=== PATIENT | male | born 1940 | race Two or more races ===

== ENCOUNTER 2017-12-16 12:08 | Inpatient (IN) | payer MEDICARE, MEDICAID ==
--- NOTE | 2017-12-16 13:40 | C.PDOC ---
History Of Present Illness 77 y/o male with a past medical history of hypertension, hypercholesterolemia, and diabetes, who presents to the ED for new-onset rapid A fib A flutter with RVR. Patient went to the clinic today for routine visit and was found to have arrhythmia there, after which the ambulance was called. Patient has no associated symptoms. He denies any chest pain, palpitations, SOB, leg swelling, dizziness, visual changes, headaches, numbness, or weakness. Drug allergies reviewed: Penicillin Benadryl Medications reviewed: Vitamin C Centrum Silver Vitamin D Fish Oil Aspirin 81mg Simvastatin 10 mg Janumet Nateglinide 120 mg NovoLog Flexpen Levemir Seroquel 50 mg Depakote 250 mg Invega Sustenna Lovaza prn Time Seen by Provider: 12/16/17 13:17 Chief Complaint (Nursing): Medical Clearance History Per: Patient History/Exam Limitations: no limitations Onset/Duration Of Symptoms: Unknown Past Medical History Reviewed: Historical Data, Nursing Documentation, Vital Signs Vital Signs: Last Vital Signs Temp 98.3 F 12/16/17 20:00 Pulse 73 12/16/17 20:49 Resp 18 12/16/17 20:49 BP 107/64 12/16/17 20:49 Pulse Ox 99 12/16/17 21:46 - Medical History PMH: Anemia, Depression, Diabetes, HTN, Hypercholesterolemia, Hyperlipidemia, Malignancy (basal cell carcinoma s/p multiple excisions), Schizophrenia Family History: States: Unknown Family Hx - Social History Hx Tobacco Use: No Hx Alcohol Use: No Hx Substance Use: No - Immunization History Hx Tetanus Toxoid Vaccination: No Hx Influenza Vaccination: No Hx Pneumococcal Vaccination: No Review Of Systems Except As Marked, All Systems Reviewed And Found Negative. Constitutional: Negative for: Fever, Chills, Sweats Eyes: Negative for: Vision Change ENT: Negative for: Ear Pain, Ear Discharge, Nose Pain Cardiovascular: Negative for: Chest Pain, Palpitations, Orthopnea, Paroxysmal Noc. Dyspnea, Edema, Light Headedness Respiratory: Negative for: Shortness of Breath, SOB with Excertion, Pleuritic Pain, Sputum Gastrointestinal: Negative for: Nausea, Vomiting Genitourinary: Negative for: Dysuria, Frequency Musculoskeletal: Negative for: Neck Pain, Shoulder Pain, Arm Pain, Leg Pain, Other (Extremity swelling) Skin: Negative for: Rash Neurological: Negative for: Weakness, Numbness, Headache, Dizziness Psych: Negative for: Anxiety, Depression Physical Exam - Physical Exam Appears: Non-toxic, No Acute Distress Skin: Normal Color, Warm, Dry Head: Atraumatic, Normacephalic Eye(s): bilateral: Normal Inspection, PERRL, EOMI Ear(s): Bilateral: Normal Nose: Normal Oral Mucosa: Moist Tongue: Normal Appearing Lips: Normal Appearing Teeth: Normal Dentition Gingiva: Normal Appearing Throat: Normal Neck: Normal ROM, Supple Lymphatic: Normal Exam Chest: Symmetrical Cardiovascular: Rhythm Irregular (Irregularly Irregular) Respiratory: Normal Breath Sounds, No Accessory Muscle Use, No Rales, No Rhonchi , No Wheezing, Other (No acute respiratory distress) Gastrointestinal/Abdominal: Normal Exam, Soft, No Tenderness, No Distention Back: Normal Inspection, No CVA Tenderness, No Vertebral Tenderness Extremity: Bilateral: Atraumatic, No Pedal Edema, Normal Color And Temperature, Normal ROM Pulses: Left Dorsalis Pedis: Normal, Right Dorsalis Pedis: Normal Neurological/Psych: Oriented x3, Normal Speech Gait: Steady ED Course And Treatment - Laboratory Results Result Diagrams: 12/16/17 14:04 12/16/17 14:04 Interpretation Of ECG: EKG: A flutter with variable block, in the 130s. QRS duration is 72 ms. QT/QTc is 328/476 ms. P-R-T axes are 76, 73 O2 Sat by Pulse Oximetry: 99 (RA) Pulse Ox Interpretation: Normal Critical Care Time - Critical Care Note Total Time (in mins): 45 Documented critical care: time excludes all time spent performing seperately billable procedures. Medical Decision Making Medical Decision Making: Time: 13:58 Initial Plan: * EKG * Pro-BNP * CMP * Thyroid panel * CBC * PTT * Prothrombin time * CXR * Accucheck * Aspirin 81 mg PO * Metoprolol 5 mg IV * Reevaluation 14:42 On reevaluation patient's HR increased to 145 bpm, will give 5 mg metoprolol followed by PO dose 16:48 0.5 mg digoxin IVP administered 16:49 Case discussed w/ Dr. Tovar, contract technical writer on-call. Patient will be admitted for rapid A fib with RvR. Disposition Discussed With Dr.: Acosta Tovar Doctor Will See Patient In The: ED Counseled Patient/Family Regarding: Diagnosis - Disposition Disposition: HOSPITALIZED Disposition Time: 21:46 Condition: FAIR - Clinical Impression Clinical Impression: Atrial fibrillation with rapid ventricular response - Scribe Statement The provider has reviewed the documentation as recorded by the Scribe (Morenita Solo) Provider Attestation: All medical record entries made by the Scribe were at my direction and personally dictated by me. I have reviewed the chart and agree that the record accurately reflects my personal performance of the history, physical exam, medical decision making, and the department course for this patient. I have also personally directed, reviewed, and agree with the discharge instructions and disposition. Decision To Admit - Pt Status Changed To: Hospital Disposition Of: Inpatient - Admit Certification Admit to Inpatient:: After my assessment, the patient will require hospitalization for at least two midnights. This is because of the severity of symptoms shown, intensity of services needed, and/or the medical risk in this patient being treated as an outpatient. - InPatient: Physician Admission Certification: I certify that this patient requires 2 or more midnights of care for the following reason:: rapid A fib with RvR, diabetes mellitus, hypertension - . Bed Request Type: ICU Patient Diagnosis: Atrial fibrillation with rapid ventricular response
[2017-12-16] MEDS ORDERED: Metoprolol 1 mg/ml Inj IVP ONE ×8 (13:57→17:44)
[2017-12-16 14:13] LABS: BASO # 0.1 K/uL (0.0-0.2); BASO % 0.9 % (0.0-2.0); EOS # 0.2 K/uL (0.0-0.7); EOS % 2.4 % (0.0-4.0); HEMOGLOBIN 13.1 g/dL (12.0-18.0); LYMPH # 3.2 K/uL (1.0-4.3); LYMPH % 35.2 % (20.0-40.0); MEAN CELL VOLUME 96.3 fL (80.0-94.0); MEAN CORPUSCULAR HGB CONC 34.3 g/dL (33.0-37.0); MEAN PLATELET VOLUME 8.7 fL (7.2-11.7); MONO # 0.4 K/uL (0.0-0.8); MONO % 4.8 % (0.0-10.0); NEUT # 5.1 K/uL (1.8-7.0); NEUT % 56.7 % (50.0-75.0); NRBC % 0.1 % (0.0-2.0); RBC 3.97 Mil/uL (4.40-5.90); RED CELL DISTRIBUTION WIDTH 14.2 % (11.5-14.5); WHITE BLOOD COUNT 9.1 K/uL (4.8-10.8)
--- NOTE | 2017-12-16 14:15 | RAD ---
PROCEDURE: CHEST RADIOGRAPH, 1 VIEW HISTORY: Palpations COMPARISON: None available. FINDINGS: LUNGS: The lungs are well inflated and clear. PLEURA: No pneumothorax or pleural fluid seen. CARDIOVASCULAR: Normal. OSSEOUS STRUCTURES: No significant abnormalities. VISUALIZED UPPER ABDOMEN: Normal. OTHER FINDINGS: None. IMPRESSION: No active pulmonary disease.
[2017-12-16 14:28] LABS: INR 1.1; PROTHROMBIN TIME 11.9 SECONDS (9.7-12.2)
[2017-12-16 14:39] LABS: ALB/GLOB RATIO 1.5 (1.0-2.1); ALBUMIN 4.3 g/dL (3.5-5.0); ALT/SGPT 27 U/L (21-72); AST/SGOT 23 U/L (17-59); BLOOD UREA NITROGEN 22 mg/dL (9-20); CALCIUM 9.6 mg/dl (8.6-10.4); GFR AFRICAN-AMERICAN > 60; GFR NON-AFRICAN AMERICAN > 60
[2017-12-16 14:51] LABS: B-TYPE NATRIURETIC PEPTIDE 444 pg/mL (0-900)
[2017-12-16 14:55] LABS: T3 UPTAKE 35.5 % (23.0-41.0); T4 7.67 ug/dL (5.5-11.0)
[2017-12-16] MEDS ORDERED: Esmolol 2,500 MG in Dextrose 5% In Water 240 ML IV SCH (16:00)
[2017-12-16] MEDS ORDERED: Labetalol 300 MG in Dextrose 5% In Water 240 ML IV SCH (16:30)
[2017-12-16] MEDS ORDERED: Labetalol 300 MG in Sodium Chloride 0.9% 240 ML IV SCH (16:45)
[2017-12-16] MEDS ORDERED: Digoxin 500 mcg/2ml (0.5 mg/2ml) Inj IVP ONE (16:48)
[2017-12-16] MEDS ORDERED: Digoxin 500 mcg/2ml (0.5 mg/2ml) Inj ONE (17:08)
--- NOTE | 2017-12-16 19:25 | CP.PCM.CON ---
History of Present Illness - History of Present Illness History of Present Illness: I was asked to evaluate patient by Dr Barlow. Patient is a 77 year old male with PMH HTn who presents with tachycardia. he went for a routine visit with is primary doctor and was found to be tachycardic. The patient was found to be in atrial flutter. The patient presents to ICU. He currently denies chest pain or dyspnea. Review of Systems - Constitutional Constitutional: absent: As Per HPI, Anorexia, Chills, Daytime Sleepiness, Excessive Sweating, Fatigue, Fever, Frequent Falls, Headache, Increased Appetite , Lethargy, Malaise, Night Sweats, Snoring, Sleep Apnea, Weight Gain, Weight Loss, Weakness, Other - EENT Eyes: absent: As Per HPI, Blind Spots, Blurred Vision, Change in Vision, Decreased Night Vision, Diplopia, Discharge, Dry Eye, Exophthalmos, Floaters, Irritation, Itchy Eyes, Loss of Peripheral Vision, Pain, Photophobia, Requires Corrective Lenses, Sees Flashes, Spots in Vision, Tunnel Vision, Other Visual Disturbances, Loss of Vision, Other Ears: absent: As Per HPI, Decreased Hearing, Ear Discharge, Ear Pain, Tinnitus, Abnormal Hearing, Disequilibrium, Dizziness, Other Nose/Mouth/Throat: absent: As Per HPI, Epistaxis, Nasal Congestion, Nasal Discharge, Nasal Obstruction, Nasal Trauma, Nose Pain, Post Nasal Drip, Sinus Pain, Sinus Pressure, Bleeding Gums, Change in Voice, Dental Pain, Dry Mouth, Dysphagia, Halitosis, Hoarsness, Lip Swelling, Mouth Lesions, Mouth Pain, Odynophagia, Sore Throat, Throat Swelling, Tongue Swelling, Facial Pain, Neck Pain, Neck Mass, Other - Cardiovascular Cardiovascular: Rapid Heart Rate - Respiratory Respiratory: absent: As Per HPI, Cough, Dyspnea, Hemoptysis, Dyspnea on Exertion , Wheezing, Snoring, Stridor, Pain on Inspiration, Chest Congestion, Excessive Mucous Production, Change in Mucous Color, Pain with Coughing, Other - Gastrointestinal Gastrointestinal: absent: As Per HPI, Abdominal Pain, Belching, Bloating, Change in Bowel Habits, Change in Stool Character, Coffee Ground Emesis, Constipation, Cramping, Diarrhea, Dyspepsia, Dysphagia, Early Satiety, Excessive Flatus, Fecal Incontinence, Heartburn, Hematemesis, Hematochezia, Loose Stools, Melena, Nausea, Odynophagia, Temesmus, Vomiting, Other - Genitourinary Genitourinary: absent: As Per HPI, Change in Urinary Stream, Difficulty Urinating, Dysuria, Flank Pain, Hematuria, Pyuria, Nocturia, Urinary Incontinence, Urinary Frequency, Urinary Hesitance, Urinary Urgency, Voiding Freq/Small Amts, Freq UTI, Hx Renal/Bladder Calculi, Hx /Renal Surgery, Bladder Distension, Other - Musculoskeletal Musculoskeletal: absent: As Per HPI, Abnormal Gait, Arthralgias, Atrophy, Back Pain, Deformity, Joint Swelling, Limited Range of Motion, Loss of Height, Muscle Cramps, Muscle Weakness, Myalgias, Neck Pain, Numbness, Radiating Pain into Limb, Stiffness, Tingling, Other - Integumentary Integumentary: absent: As Per HPI, Acne, Alopecia, Bleeding Lesions, Change in Hair, Change in Nails, Change in Pigmentation, Changing Lesions, Dry Skin, Erythema, Furuncle, Hirsutism, Lesions, New Lesions, Non-Healing Lesions, Photosensitivity, Pruritus, Rash, Skin Pain, Skin Ulcer, Sores, Striae, Swelling , Unusual Bruising, Wounds, Jaundice, Other - Neurological Neurological: absent: As Per HPI, Abnormal Gait, Abnormal Hearing, Abnormal Movements, Abnormal Speech, Behavioral Changes, Burning Sensations, Confusion, Convulsions, Disequilibrium, Dizziness, Numbness, Focal Weakness, Frequent Falls , Headaches, Lack of Coordination, Loss of Vision, Memory Loss, Paresthesias, Radicular Pain, Restless Legs, Sensory Deficit, Syncope, Tingling, Tremor, Vertigo, Weakness, Other Visual Disturbances, Other - Psychiatric Psychiatric: absent: As Per HPI, Abnormal Sleep Pattern, Anhedonia, Anxiety, Auditory Hallucinations, Behavioral Changes, Change in Appetite, Change in Libido, Confusion, Depression, Difficulty Concentrating, Hallucinations, Homicidal Ideation, Hopelessness, Irritability, Memory Loss, Mood Swings, Panic Attacks, Paranoia, Suicidal Ideation, Visual Hallucinations, Tactile Hallucinations, Other - Endocrine Endocrine: absent: As Per HPI, Change in Body Appearance, Change in Libido, Cold Intolorance, Deepening of Voice, Excessive Sweating, Fatigue, Flushing, Heat Intolorance, Increase in Ring/Shoe/Hat Size, Palpitations, Polydipsia, Polyphagia, Polyuria, Other - Hematologic/Lymphatic Hematologic: absent: As Per HPI, Easy Bleeding, Easy Bruising, Lymphadenopathy, Other Past Patient History - Past Social History Smoking Status: Former Smoker - CARDIAC Hx Hypercholesterolemia: Yes Hx Hypertension: Yes - ENDOCRINE/METABOLIC Hx Endocrine Disorders: Yes Hx Diabetes Mellitus Type 2: Yes - HEMATOLOGICAL/ONCOLOGICAL Hx Anemia: Yes - INTEGUMENTARY Hx Dermatological Problems: Yes Hx Squamous Cell: Yes - PSYCHIATRIC Hx Depression: Yes Hx Schizophrenia: Yes Hx Substance Use: No - SURGICAL HISTORY Hx Surgeries: No Meds Allergies/Adverse Reactions: Allergies Allergy/AdvReac Type Severity Reaction Status Date / Time diphenhydramine HCl Allergy DIZZINESS Verified 02/25/16 13:07 [From Benadryl] Penicillins Allergy RASH Verified 02/25/16 13:07 - Medications Medications: Current Medications Aspirin (Ecotrin) 81 mg PO DAILY [facility] Enoxaparin Sodium (Lovenox) 80 mg SC Q12 [facility] Metoprolol Tartrate (Lopressor) 50 mg PO BID [facility] Last Admin: 12/16/17 16:36 Dose: 50 mg Physical Exam - Constitutional Appears: Non-toxic - Head Exam Head Exam: NORMAL INSPECTION - Eye Exam Eye Exam: Normal appearance - ENT Exam ENT Exam: Mucous Membranes Moist - Neck Exam Neck exam: Positive for: Full Rom - Respiratory Exam Respiratory Exam: NORMAL BREATHING PATTERN - Cardiovascular Exam Cardiovascular Exam: Tachycardia, Irregular Rhythm - GI/Abdominal Exam GI & Abdominal Exam: Normal Bowel Sounds - Rectal Exam Rectal Exam: Deferred - Extremities Exam Extremities exam: Negative for: pedal edema - Back Exam Back exam: NORMAL INSPECTION - Psychiatric Exam Psychiatric exam: Normal Affect - Skin Skin Exam: Normal Color Results - Vital Signs Recent Vital Signs: Last Vital Signs Temp 98.4 F 12/16/17 18:13 Pulse 142 H 12/16/17 18:37 Resp 21 12/16/17 18:37 BP 114/85 12/16/17 18:37 Pulse Ox 96 12/16/17 18:37 - Labs Result Diagrams: 12/16/17 14:04 12/16/17 14:04 Labs: Laboratory Results - last 24 hr 12/16/17 12/16/17 12/16/17 12:23 14:04 14:04 WBC 9.1 RBC 3.97 L Hgb 13.1 Hct 38.3 MCV 96.3 H D MCH 33.0 H MCHC 34.3 RDW 14.2 Plt Count 558 H MPV 8.7 Neut % (Auto) 56.7 Lymph % (Auto) 35.2 Bailey % (Auto) 4.8 Eos % (Auto) 2.4 Baso % (Auto) 0.9 Neut # (Auto) 5.1 Lymph # (Auto) 3.2 Bailey # (Auto) 0.4 Eos # (Auto) 0.2 Baso # (Auto) 0.1 PT 11.9 INR 1.1 APTT 32 Sodium Potassium Chloride Carbon Dioxide Anion Gap BUN Creatinine Est GFR ( Amer) Est GFR (Non-Af Amer) POC Glucose (mg/dL) 123 H Random Glucose Calcium Total Bilirubin AST ALT Alkaline Phosphatase Troponin I NT-Pro-B Natriuret Pep Total Protein Albumin Globulin Albumin/Globulin Ratio Thyroxine (T4) T3 Uptake TSH 3rd Generation 12/16/17 14:04 WBC RBC Hgb Hct MCV MCH MCHC RDW Plt Count MPV Neut % (Auto) Lymph % (Auto) Bailey % (Auto) Eos % (Auto) Baso % (Auto) Neut # (Auto) Lymph # (Auto) Bailey # (Auto) Eos # (Auto) Baso # (Auto) PT INR APTT Sodium 140 Potassium 4.5 Chloride 98 Carbon Dioxide 29 Anion Gap 18 BUN 22 H Creatinine 0.9 Est GFR ( Amer) > 60 Est GFR (Non-Af Amer) > 60 POC Glucose (mg/dL) Random Glucose 119 H Calcium 9.6 Total Bilirubin 0.4 AST 23 ALT 27 Alkaline Phosphatase 67 Troponin I < 0.0120 NT-Pro-B Natriuret Pep 444 Total Protein 7.2 Albumin 4.3 Globulin 2.9 Albumin/Globulin Ratio 1.5 Thyroxine (T4) 7.67 T3 Uptake 35.5 TSH 3rd Generation 3.41 - EKG Data EKG Interpreted by: Myself - EKG Data EKG Specific Queries Rhythm: Atrial Flutter Assessment & Plan - Assessment and Plan (Free Text) Assessment: Atrial flutter. Patient has rapid ventricular rate. The duration of atrial flutter is unclear. I recommend full dose anticoagulation. Can start Verapamil drip. Echocardiogram to assess LV function. Based upon results of therapy, patient may require MASOUD and possible cardioversion. All risks and benefits were discussed. patient understands
--- NOTE | 2017-12-16 19:35 | CP.PCM.HP ---
<AbdelrahmanamyZenia - Last Filed: 12/16/17 19:51> History of Present Illness - History of Present Illness History of Present Illness: This patient is a 77 year old male with a PMHx of HTN, DM II, Schizoaffective disorder and Anemia who was sent by provider in [facility] due to rapid heart rate and elevated blood pressure. Patient has no symptoms. He denies any fevers, chills, headache, vision changes, recent weight loss, chest pain, palpitations, SOB, nausea, vomiting, abdominal pain, changes in bowel habits or urinary symptoms. ROS: As stated above PMHx: As stated above PSHx: Appendectomy, Skin Biopsy Allergies: Benadryl, Penicllins, Meds: Vitamin C 1000MG, Centrum Silver, Vitamin D 1000 IU Daily, Fish Oil 1000mg Daily, ASA 818 Daily, Simvastatin 10mg HS, Janumet 50-1000mg BID Nateglinide 120 AC, Novolog SC at lunch time, Levemir SC HS, Seroquel 50mg Daily , Depakote 250mg Daily, Invega Sustenna 78mg/0.5ml IM Q6WK, FamHx: Non-Cont. Present on Admission - Present on Admission Any Indicators Present on Admission: No Review of Systems - Review of Systems All systems: reviewed and no additional remarkable complaints except (As per HPI ) Review of Systems: As per HPI Past Patient History - Past Social History Smoking Status: Former Smoker - CARDIAC Hx Hypercholesterolemia: Yes Hx Hypertension: Yes - ENDOCRINE/METABOLIC Hx Endocrine Disorders: Yes Hx Diabetes Mellitus Type 2: Yes - HEMATOLOGICAL/ONCOLOGICAL Hx Anemia: Yes - INTEGUMENTARY Hx Dermatological Problems: Yes Hx Squamous Cell: Yes - PSYCHIATRIC Hx Depression: Yes Hx Schizophrenia: Yes Hx Substance Use: No - SURGICAL HISTORY Hx Surgeries: No Meds Allergies/Adverse Reactions: Allergies Allergy/AdvReac Type Severity Reaction Status Date / Time diphenhydramine HCl Allergy DIZZINESS Verified 02/25/16 13:07 [From Benadryl] Penicillins Allergy RASH Verified 02/25/16 13:07 Physical Exam - Constitutional Appears: Well, Non-toxic - Head Exam Head Exam: ATRAUMATIC, NORMAL INSPECTION, NORMOCEPHALIC - Eye Exam Eye Exam: Normal appearance - Neck Exam Neck exam: Positive for: Normal Inspection. Negative for: Lymphadenopathy, Tenderness, Thyromegaly - Respiratory Exam Respiratory Exam: Clear to Auscultation Bilateral, NORMAL BREATHING PATTERN - Cardiovascular Exam Cardiovascular Exam: Irregular Rhythm, +S1, +S2, +S4. absent: JVD Additional comments: No Carotid Bruit - GI/Abdominal Exam GI & Abdominal Exam: Normal Bowel Sounds. absent: Tenderness - Extremities Exam Extremities exam: Negative for: pedal edema - Neurological Exam Neurological exam: Alert, Altered, Oriented x3 - Psychiatric Exam Psychiatric exam: Normal Affect, Normal Mood - Skin Skin Exam: Dry, Intact, Normal Color, Warm Results - Vital Signs Recent Vital Signs: Last Vital Signs Temp 98.4 F 12/16/17 18:13 Pulse 142 H 12/16/17 18:37 Resp 21 12/16/17 18:37 BP 114/85 12/16/17 18:37 Pulse Ox 96 12/16/17 18:37 - Labs Result Diagrams: 12/16/17 14:04 12/16/17 14:04 Labs: Laboratory Results - last 24 hr 12/16/17 12/16/17 12/16/17 12:23 14:04 14:04 WBC 9.1 RBC 3.97 L Hgb 13.1 Hct 38.3 MCV 96.3 H D MCH 33.0 H MCHC 34.3 RDW 14.2 Plt Count 558 H MPV 8.7 Neut % (Auto) 56.7 Lymph % (Auto) 35.2 [place] % (Auto) 4.8 Eos % (Auto) 2.4 Baso % (Auto) 0.9 Neut # (Auto) 5.1 Lymph # (Auto) 3.2 [place] # (Auto) 0.4 Eos # (Auto) 0.2 Baso # (Auto) 0.1 PT 11.9 INR 1.1 APTT 32 Sodium Potassium Chloride Carbon Dioxide Anion Gap BUN Creatinine Est GFR ( Amer) Est GFR (Non-Af Amer) POC Glucose (mg/dL) 123 H Random Glucose Calcium Total Bilirubin AST ALT Alkaline Phosphatase Troponin I NT-Pro-B Natriuret Pep Total Protein Albumin Globulin Albumin/Globulin Ratio Thyroxine (T4) T3 Uptake TSH 3rd Generation 12/16/17 14:04 WBC RBC Hgb Hct MCV MCH MCHC RDW Plt Count MPV Neut % (Auto) Lymph % (Auto) [place] % (Auto) Eos % (Auto) Baso % (Auto) Neut # (Auto) Lymph # (Auto) [place] # (Auto) Eos # (Auto) Baso # (Auto) PT INR APTT Sodium 140 Potassium 4.5 Chloride 98 Carbon Dioxide 29 Anion Gap 18 BUN 22 H Creatinine 0.9 Est GFR ( Amer) > 60 Est GFR (Non-Af Amer) > 60 POC Glucose (mg/dL) Random Glucose 119 H Calcium 9.6 Total Bilirubin 0.4 AST 23 ALT 27 Alkaline Phosphatase 67 Troponin I < 0.0120 NT-Pro-B Natriuret Pep 444 Total Protein 7.2 Albumin 4.3 Globulin 2.9 Albumin/Globulin Ratio 1.5 Thyroxine (T4) 7.67 T3 Uptake 35.5 TSH 3rd Generation 3.41 Assessment & Plan - Assessment and Plan (Free Text) Assessment: 77 year old male with a PMHx of HTN, DM II, Schizoaffective disorder and Anemia who was sent by provider in [facility] due to rapid heart rate and elevated blood pressure. EKG on Admission showed Atrial Flutter. Plan: Atrial Flutter ED: 4 doses of Metoprolol 5, 0.5mg digoxin IVP ONCE EKG (Adm): Atrial Flutter CXR (12/16): No Active Pulm Disease Cardiology Consulted (Dr. Haskins) Recs Appreciated ECHO. Per Cardio patient may need MASOUD with cardioversion Lovenox 80 Q12H Verapamil Given once. Verapamil Drip Cont. Home ASA 81 Hx of HTN Metoprolol 50 BID Hx of DM II Levemir 8 HS Regular ISS Hx of Schizoaffective Disorder Depakote ER 250mg PO HS Seroquel 50mg PO HS Hx of Anemia HgB Normal Proph Lovenox No indication for GI Proph Diet: Diabetic Patient seen and discussed with Attending Zenia Michael, PGY-1 <Sheila Barlow V - Last Filed: 12/16/17 21:24> Results - Vital Signs Recent Vital Signs: Last Vital Signs Temp 98.3 F 12/16/17 20:00 Pulse 82 12/16/17 20:30 Resp 22 12/16/17 20:30 BP 125/87 12/16/17 20:00 Pulse Ox 97 12/16/17 20:30 - Labs Result Diagrams: 12/16/17 14:04 12/16/17 14:04 Labs: Laboratory Results - last 24 hr 12/16/17 12/16/17 12/16/17 12:23 14:04 14:04 WBC 9.1 RBC 3.97 L Hgb 13.1 Hct 38.3 MCV 96.3 H D MCH 33.0 H MCHC 34.3 RDW 14.2 Plt Count 558 H MPV 8.7 Neut % (Auto) 56.7 Lymph % (Auto) 35.2 [place] % (Auto) 4.8 Eos % (Auto) 2.4 Baso % (Auto) 0.9 Neut # (Auto) 5.1 Lymph # (Auto) 3.2 [place] # (Auto) 0.4 Eos # (Auto) 0.2 Baso # (Auto) 0.1 PT 11.9 INR 1.1 APTT 32 Sodium Potassium Chloride Carbon Dioxide Anion Gap BUN Creatinine Est GFR ( Amer) Est GFR (Non-Af Amer) POC Glucose (mg/dL) 123 H Random Glucose Calcium Total Bilirubin AST ALT Alkaline Phosphatase Troponin I NT-Pro-B Natriuret Pep Total Protein Albumin Globulin Albumin/Globulin Ratio Thyroxine (T4) T3 Uptake TSH 3rd Generation 12/16/17 12/16/17 12/16/17 14:04 17:15 20:13 WBC RBC Hgb Hct MCV MCH MCHC RDW Plt Count MPV Neut % (Auto) Lymph % (Auto) [place] % (Auto) Eos % (Auto) Baso % (Auto) Neut # (Auto) Lymph # (Auto) [place] # (Auto) Eos # (Auto) Baso # (Auto) PT INR APTT Sodium 140 Potassium 4.5 Chloride 98 Carbon Dioxide 29 Anion Gap 18 BUN 22 H Creatinine 0.9 Est GFR ( Amer) > 60 Est GFR (Non-Af Amer) > 60 POC Glucose (mg/dL) 127 H 197 H Random Glucose 119 H Calcium 9.6 Total Bilirubin 0.4 AST 23 ALT 27 Alkaline Phosphatase 67 Troponin I < 0.0120 NT-Pro-B Natriuret Pep 444 Total Protein 7.2 Albumin 4.3 Globulin 2.9 Albumin/Globulin Ratio 1.5 Thyroxine (T4) 7.67 T3 Uptake 35.5 TSH 3rd Generation 3.41 Assessment & Plan (1) Atrial flutter Status: Acute (2) Hypertension Status: Chronic (3) Diabetes Status: Chronic (4) Schizoaffective disorder Status: Chronic (5) Skin cancer Status: Chronic (6) Prophylactic measure Status: Acute Attending/Attestation - Attestation I have personally seen and examined this patient.: Yes I have fully participated in the care of the patient.: Yes I have reviewed all pertinent clinical information: Yes Notes (Text): Patient seen, examined and case discussed with ICU and cardiology. Patient was at his regular checkup at the [facility], which he was told by the doctor he had a very high heart rate and high blood pressure and recommended to go to the emergency room. Patient denies feeling any symptoms. Patient denies lightheaded, denies dyspnea on exertion, denies chest pain, denies feeling any palpitations. Patient reports he is ambulatory, denies any falls/trips, denies alcohol use, denies history of known thyroid disorder, and reports he takes his medication every day except for today. Patient denies recent surgery, denies long trips, denies any weight loss/gain. In the ED, patient was given Lopressor 5mg IV, Digoxin 0.5mg IVX1 and heart rate when patient is brought to icu and seen by myself at 6:50PM is about 120s. Patient is asymptomatic and understands he is here because of his high rate and blood pressure. Case discussed with cardiology, ekg reviewed Atrial flutter, recommending for Verapmil drip. Also recommending for anticoagulation, and MASOUD and possible cardioversion tomorrow if appendage thrombus is ruled out. He will make determine if patient is appropriate for ablation if required. Assessment/Plan 1) Atrial Flutter * Cardiology Consulted (Dr. Haskins) Recs Appreciated * ECHO * Per Cardio patient may need MASOUD with cardioversion tomorrow * Will see if patient is candidate for ablation * Recommend for Verapmil drip * ED: 4 doses of Metoprolol 5, 0.5mg digoxin IVP ONCE * EKG (Adm): Atrial Flutter * CXR (12/16): No Active Pulm Disease * Start Lovenox 80 Q12H * Aspirin 81mg PO daily * Initial troponin negative; probnp: negative * Check BRAULIO X2,q8 hours 2) Hx of Hypertension * Patient recommended for Verampil drip given heart rate refractory to Lopressor , Digoxin 3) Hx of Diabetes * Levemir 8 HS * Regular ISS * Accuchecks QAC and HS * check a1c, lipid panel in AM * Home medication: Janumet, nateglinidie, Humalog at lunch, and lantus evening 4) History of lipid disorder * check lipid panel in the AM * Home medication: omega 3 Fa, statin 5) Hx of Schizoaffective Disorder * Depakote ER 250mg PO HS * Seroquel 50mg PO HS * Check depakote level 6) Vitamin D Deficiency * check vitamin D 7) Hx of Anemia * HgB Normal, MCV normal 8) History of known skin cancer * Patient denies melanoma history and has had skin removals in the past 9) Prophylaxis * Lovenox 80mg [id number] * No indication for GI Proph * Diet: Diabetic heart healthy diet
--- NOTE | 2017-12-16 19:54 | CP.PCM.CON ---
History of Present Illness - History of Present Illness History of Present Illness: ICU Consult NOTE This patient is a 77 year old male with a PMHx of HTN, DM II, Schizoaffective disorder and Anemia who was sent by provider in [facility] due to rapid heart rate and elevated blood pressure. Patient has no symptoms. He denies any fevers, chills, headache, vision changes, recent weight loss, chest pain, palpitations, SOB, nausea, vomiting, abdominal pain, changes in bowel habits or urinary symptoms. ROS: As stated above PMHx: As stated above PSHx: Appendectomy, Skin Biopsy Allergies: Benadryl, Penicllins, Meds: Vitamin C 1000MG, Centrum Silver, Vitamin D 1000 IU Daily, Fish Oil 1000mg Daily, ASA 818 Daily, Simvastatin 10mg HS, Janumet 50-1000mg BID Nateglinide 120 AC, Novolog SC at lunch time, Levemir SC HS, Seroquel 50mg Daily , Depakote 250mg Daily, Invega Sustenna 78mg/0.5ml IM Q6WK, FamHx: Non-Cont. Review of Systems - Review of Systems All systems: reviewed and no additional remarkable complaints except (As per HPI ) Review of Systems: As per HPI Past Patient History - Past Social History Smoking Status: Former Smoker - CARDIAC Hx Hypercholesterolemia: Yes Hx Hypertension: Yes - ENDOCRINE/METABOLIC Hx Endocrine Disorders: Yes Hx Diabetes Mellitus Type 2: Yes - HEMATOLOGICAL/ONCOLOGICAL Hx Anemia: Yes - INTEGUMENTARY Hx Dermatological Problems: Yes Hx Squamous Cell: Yes - PSYCHIATRIC Hx Depression: Yes Hx Schizophrenia: Yes Hx Substance Use: No - SURGICAL HISTORY Hx Surgeries: No Meds Allergies/Adverse Reactions: Allergies Allergy/AdvReac Type Severity Reaction Status Date / Time diphenhydramine HCl Allergy DIZZINESS Verified 02/25/16 13:07 [From Benadryl] Penicillins Allergy RASH Verified 02/25/16 13:07 - Medications Medications: Current Medications Aspirin (Ecotrin) 81 mg PO DAILY [facility] Divalproex Sodium (Depakote Er) 250 mg PO HS [facility] Enoxaparin Sodium (Lovenox) 80 mg SC Q12 [facility] Verapamil HCl 40 mg/ Sodium (Chloride) 100 mls @ 12.5 mls/hr IV .Q8H [facility]; 5 MG/ HR PRN Reason: Protocol Insulin Detemir (Levemir) 8 unit SC [facility] Insulin Human Regular (Novolin R) 0 unit SC [facility] PRN Reason: Protocol Metoprolol Tartrate (Lopressor) 50 mg PO BID [facility] Last Admin: 12/16/17 16:36 Dose: 50 mg Quetiapine Fumarate (Seroquel) 50 mg PO [facility] Verapamil HCl (Verapamil Inj) 5 mg IVP ONCE ONE Stop: 12/16/17 20:01 Physical Exam - Additional Findings Additional findings: - Constitutional Appears: Well, Non-toxic - Head Exam Head Exam: ATRAUMATIC, NORMAL INSPECTION, NORMOCEPHALIC - Eye Exam Eye Exam: Normal appearance - Neck Exam Neck exam: Positive for: Normal Inspection. Negative for: Lymphadenopathy, Tenderness, Thyromegaly - Respiratory Exam Respiratory Exam: Clear to Auscultation Bilateral, NORMAL BREATHING PATTERN - Cardiovascular Exam Cardiovascular Exam: Irregular Rhythm, +S1, +S2, +S4. absent: JVD Additional comments: No Carotid Bruit - GI/Abdominal Exam GI & Abdominal Exam: Normal Bowel Sounds. absent: Tenderness - Extremities Exam Extremities exam: Negative for: pedal edema - Neurological Exam Neurological exam: Alert, Altered, Oriented x3 - Psychiatric Exam Psychiatric exam: Normal Affect, Normal Mood - Skin Skin Exam: Dry, Intact, Normal Color, Warm Results - Vital Signs Recent Vital Signs: Last Vital Signs Temp 98.4 F 12/16/17 18:13 Pulse 142 H 12/16/17 18:37 Resp 21 12/16/17 18:37 BP 114/85 12/16/17 18:37 Pulse Ox 96 12/16/17 18:37 - Labs Result Diagrams: 12/16/17 14:04 12/16/17 14:04 Labs: Laboratory Results - last 24 hr 12/16/17 12/16/17 12/16/17 12:23 14:04 14:04 WBC 9.1 RBC 3.97 L Hgb 13.1 Hct 38.3 MCV 96.3 H D MCH 33.0 H MCHC 34.3 RDW 14.2 Plt Count 558 H MPV 8.7 Neut % (Auto) 56.7 Lymph % (Auto) 35.2 [place] % (Auto) 4.8 Eos % (Auto) 2.4 Baso % (Auto) 0.9 Neut # (Auto) 5.1 Lymph # (Auto) 3.2 [place] # (Auto) 0.4 Eos # (Auto) 0.2 Baso # (Auto) 0.1 PT 11.9 INR 1.1 APTT 32 Sodium Potassium Chloride Carbon Dioxide Anion Gap BUN Creatinine Est GFR ( Amer) Est GFR (Non-Af Amer) POC Glucose (mg/dL) 123 H Random Glucose Calcium Total Bilirubin AST ALT Alkaline Phosphatase Troponin I NT-Pro-B Natriuret Pep Total Protein Albumin Globulin Albumin/Globulin Ratio Thyroxine (T4) T3 Uptake TSH 3rd Generation 12/16/17 14:04 WBC RBC Hgb Hct MCV MCH MCHC RDW Plt Count MPV Neut % (Auto) Lymph % (Auto) [place] % (Auto) Eos % (Auto) Baso % (Auto) Neut # (Auto) Lymph # (Auto) [place] # (Auto) Eos # (Auto) Baso # (Auto) PT INR APTT Sodium 140 Potassium 4.5 Chloride 98 Carbon Dioxide 29 Anion Gap 18 BUN 22 H Creatinine 0.9 Est GFR ( Amer) > 60 Est GFR (Non-Af Amer) > 60 POC Glucose (mg/dL) Random Glucose 119 H Calcium 9.6 Total Bilirubin 0.4 AST 23 ALT 27 Alkaline Phosphatase 67 Troponin I < 0.0120 NT-Pro-B Natriuret Pep 444 Total Protein 7.2 Albumin 4.3 Globulin 2.9 Albumin/Globulin Ratio 1.5 Thyroxine (T4) 7.67 T3 Uptake 35.5 TSH 3rd Generation 3.41 Assessment & Plan - Assessment and Plan (Free Text) Assessment: 77 year old male with a PMHx of HTN, DM II, Schizoaffective disorder and Anemia who was sent by provider in [facility] due to rapid heart rate and elevated blood pressure. EKG on Admission showed Atrial Flutter. Plan: Atrial Flutter ED: 4 doses of Metoprolol 5, 0.5mg digoxin IVP ONCE EKG (Adm): Atrial Flutter CXR (12/16): No Active Pulm Disease Cardiology Consulted (Dr. Haskins) Recs Appreciated ECHO. Per Cardio patient may need MASOUD with cardioversion Lovenox 80 Q12H Verapamil Given once. Verapamil Drip Cont. Home ASA 81 Hx of HTN Metoprolol 50 BID Hx of DM II Levemir 8 HS Regular ISS Hx of Schizoaffective Disorder Depakote ER 250mg PO HS Seroquel 50mg PO HS Hx of Anemia HgB Normal Proph Lovenox No indication for GI Proph Diet: Diabetic Patient seen and discussed with Attending Zenia Michael, PGY-1
[2017-12-16] MEDS: Verapamil 40 MG in Sodium Chloride 0.9% 84 ML IV SCH (20:16)
[2017-12-16] MEDS: (Novolin R) Insulin Human Regular 100 units/ml vial SC SCH (21:30)
[2017-12-16] MEDS: Enoxaparin 80 mg Syringe SC SCH (21:33)
[2017-12-16] MEDS: Insulin Detemir 100 units/ml Vial (Levemir) SC SCH (21:34)
[2017-12-16 22:23] LABS: CK-MB 0.29 ng/mL (0.0-3.38)
[2017-12-16] MEDS ORDERED: Sodium Chloride 0.9% 500 ML IV SCH (23:30)
[2017-12-17] MEDS ORDERED: Sodium Chloride 0.9% 500 ML IV SCH (01:30)
[2017-12-17] MEDS: Verapamil 40 MG in Sodium Chloride 0.9% 84 ML IV SCH ×3 (03:56→19:34)
[2017-12-17 06:09] LABS: BASO # 0.1 K/uL (0.0-0.2); BASO % 1.1 % (0.0-2.0); EOS # 0.3 K/uL (0.0-0.7); HEMOGLOBIN 12.6 g/dL (12.0-18.0); LYMPH # 3.7 K/uL (1.0-4.3); LYMPH % 49.9 % (20.0-40.0); MEAN CORPUSCULAR HEMOGLOBIN 32.3 pg (27.0-31.0); MEAN CORPUSCULAR HGB CONC 33.6 g/dL (33.0-37.0); MEAN PLATELET VOLUME 8.6 fL (7.2-11.7); MONO # 0.6 K/uL (0.0-0.8); MONO % 7.5 % (0.0-10.0); NEUT # 2.8 K/uL (1.8-7.0); NEUT % 37.5 % (50.0-75.0); RBC 3.9 Mil/uL (4.40-5.90); WHITE BLOOD COUNT 7.4 K/uL (4.8-10.8)
[2017-12-17 06:31] LABS: ALB/GLOB RATIO 1.6 (1.0-2.1); ALBUMIN 4.1 g/dL (3.5-5.0); ALT/SGPT 17 U/L (21-72); AST/SGOT 31 U/L (17-59); BLOOD UREA NITROGEN 18 mg/dL (9-20); CALCIUM 8.7 mg/dl (8.6-10.4); GFR AFRICAN-AMERICAN > 60; GFR NON-AFRICAN AMERICAN > 60; HDL CHOLESTEROL 36 mg/dL (30-70)
[2017-12-17 06:40] LABS: CK-MB 0.36 ng/mL (0.0-3.38); LDL CHOLESTEROL 70 mg/dL (0-129)
[2017-12-17] MEDS: (Novolin R) Insulin Human Regular 100 units/ml vial SC SCH ×4 (07:46→21:42)
--- NOTE | 2017-12-17 08:24 | CP.PCM.PN ---
Subjective - Date & Time of Evaluation Date of Evaluation: 12/17/17 Time of Evaluation: 08:00 - Subjective Subjective: patient has no chest pain. remains in atrial flutter. Objective - Vital Signs/Intake and Output Vital Signs (last 24 hours): Temp Pulse Resp BP Pulse Ox 98 F 77 14 91/46 L 96 12/17/17 04:00 12/17/17 06:00 12/17/17 06:00 12/17/17 06:05 12/17/17 06:00 Intake and Output: 12/17/17 12/17/17 06:59 18:59 Intake Total 1523.8 Output Total 2100 Balance -576.2 - Medications Medications: Current Medications Aspirin (Ecotrin) 81 mg PO DAILY [facility] Divalproex Sodium (Depakote Er) 250 mg PO [facility] Last Admin: 12/16/17 21:30 Dose: 250 mg Enoxaparin Sodium (Lovenox) 80 mg SC Q12 [facility] Last Admin: 12/16/17 21:33 Dose: 80 mg Verapamil HCl 40 mg/ Sodium (Chloride) 100 mls @ 12.5 mls/hr IV .Q8H [facility]; 5 MG/ HR PRN Reason: Protocol Last Admin: 12/17/17 03:56 Dose: Not Given Insulin Detemir (Levemir) 8 unit SC [facility] Last Admin: 12/16/17 21:34 Dose: 8 unit Insulin Human Regular (Novolin R) [address] [facility] PRN Reason: Protocol Last Admin: 12/17/17 07:46 Dose: Not Given Metoprolol Tartrate (Lopressor) 50 mg PO BID [facility] Quetiapine Fumarate (Seroquel) 50 mg PO [facility] Last Admin: 12/16/17 21:31 Dose: 50 mg Rosuvastatin Calcium (Crestor) 5 mg PO [facility] Last Admin: 12/16/17 21:33 Dose: 5 mg - Labs Labs: 12/17/17 06:01 12/17/17 06:01 PT 11.9 SECONDS (9.7-12.2) 12/16/17 14:04 INR 1.1 12/16/17 14:04 APTT 32 SECONDS (21-34) 12/16/17 14:04 - Constitutional Appears: Non-toxic - Head Exam Head Exam: NORMAL INSPECTION - Eye Exam Eye Exam: Normal appearance - ENT Exam ENT Exam: Mucous Membranes Moist - Neck Exam Neck Exam: Full ROM - Respiratory Exam Respiratory Exam: NORMAL BREATHING PATTERN - Cardiovascular Exam Cardiovascular Exam: Tachycardia, Irregular Rhythm - GI/Abdominal Exam GI & Abdominal Exam: Normal Bowel Sounds - Rectal Exam Rectal Exam: Deferred - Extremities Exam Extremities Exam: absent: Pedal Edema - Back Exam Back Exam: NORMAL INSPECTION - Neurological Exam Neurological Exam: Alert - Psychiatric Exam Psychiatric exam: Normal Affect - Skin Skin Exam: Normal Color Assessment and Plan (1) Atrial flutter Assessment & Plan: continue verapamil. anticaogulation. I will evaluate 2D echocardiogram Likely will require MASOUD/cardioversion. Status: Acute
[2017-12-17] MEDS: Enoxaparin 80 mg Syringe SC SCH ×2 (09:41→21:56)
--- NOTE | 2017-12-17 13:43 | CARD ---
APPROVED REPORT EKG Measurement Heart [id number] <Conclusion> Atrial flutter with variable AV block Abnormal ECG
--- NOTE | 2017-12-17 14:44 | CP.PCM.PN ---
Subjective - Date & Time of Evaluation Date of Evaluation: 12/17/17 Time of Evaluation: 14:40 - Subjective Subjective: Medical Attending Note: Patient seen and examined this afternoon. Patient denies chest pain, denies shortness of breathe, denies abdominal pain, denies nausea, denies vomitting, denies billy, denies shortness of breathe. Patient completed 2D- echocardiogram today and ate all his lunch this morning. Objective - Vital Signs/Intake and Output Vital Signs (last 24 hours): Temp Pulse Resp BP Pulse Ox 98.3 F 145 H 12 108/75 92 L 12/17/17 12:00 12/17/17 13:00 12/17/17 13:00 12/17/17 12:44 12/17/17 13:00 Intake and Output: 12/17/17 12/17/17 06:59 18:59 Intake Total 1523.8 432.5 Output Total 2100 650 Balance -576.2 -217.5 - Medications Medications: Current Medications Aspirin (Ecotrin) 81 mg PO DAILY [facility] Last Admin: 12/17/17 09:41 Dose: 81 mg Divalproex Sodium (Depakote Er) 250 mg PO [facility] Last Admin: 12/16/17 21:30 Dose: 250 mg Enoxaparin Sodium (Lovenox) 65 mg SC Q12 [facility] Famotidine (Pepcid) 20 mg PO BID [facility] Verapamil HCl 40 mg/ Sodium (Chloride) 100 mls @ 12.5 mls/hr IV .Q8H [facility]; 5 MG/ HR PRN Reason: Protocol Last Admin: 12/17/17 12:51 Dose: 12.5 mls/hr Insulin Detemir (Levemir) 8 unit SC [facility] Last Admin: 12/16/17 21:34 Dose: 8 unit Insulin Human Regular (Novolin R) 0 unit SC [facility] PRN Reason: Protocol Last Admin: 12/17/17 11:36 Dose: 2 unit Metoprolol Tartrate (Lopressor) 50 mg PO BID [facility] Last Admin: 12/17/17 10:59 Dose: Not Given Quetiapine Fumarate (Seroquel) 50 mg PO [facility] Last Admin: 12/16/17 21:31 Dose: 50 mg Rosuvastatin Calcium (Crestor) 5 mg PO [facility] Last Admin: 05/22/18 21:33 Dose: 5 mg - Labs Labs: 12/17/17 06:01 12/17/17 06:01 PT 11.9 SECONDS (9.7-12.2) 12/16/17 14:04 INR 1.1 12/16/17 14:04 APTT 32 SECONDS (21-34) 12/16/17 14:04 - Constitutional Appears: Non-toxic, No Acute Distress - Head Exam Head Exam: NORMAL INSPECTION - Eye Exam Eye Exam: EOMI - ENT Exam ENT Exam: Mucous Membranes Moist - Respiratory Exam Respiratory Exam: Clear to Ausculation Bilateral, NORMAL BREATHING PATTERN. absent: Rales, Rhonchi, Wheezes - Cardiovascular Exam Cardiovascular Exam: Tachycardia, +S1, +S2 - GI/Abdominal Exam GI & Abdominal Exam: Soft, Normal Bowel Sounds. absent: Distended, Firm, Guarding, Rigid, Tenderness, Rebound - Extremities Exam Extremities Exam: absent: Pedal Edema, Tenderness - Neurological Exam Neurological Exam: Alert, Awake, Oriented x3 Neuro motor strength exam: Left Upper Extremity: 5, Right Upper Extremity: 5, Left Lower Extremity: 5, Right Lower Extremity: 5 - Psychiatric Exam Psychiatric exam: Normal Affect, Normal Mood - Skin Skin Exam: Dry, Intact, Normal Color, Warm Assessment and Plan (1) Atrial flutter Status: Acute (2) Hypertension Status: Chronic (3) Diabetes Status: Chronic (4) Schizoaffective disorder Status: Chronic (5) Skin cancer Status: Chronic (6) Prophylactic measure Status: Acute Attending/Attestation - Attestation I have personally seen and examined this patient.: Yes I have fully participated in the care of the patient.: Yes I have reviewed all pertinent clinical information, including history, physical exam and plan: Yes Notes (Text): Assessment/Plan 1) Atrial Flutter * Cardiology Consulted (Dr. Haskins) Recs Appreciated * Completed ECHO--->awaiting read; possible MASOUD with cardioversion * ED: 4 doses of Metoprolol 5, 0.5mg digoxin IVP ONCE; in icu, patient started on Verampil drip * EKG (Adm): Atrial Flutter * CXR (12/16): No Active Pulm Disease * Start Lovenox 65mg Q12H * Aspirin 81mg PO daily * BRAULIO X3 negative * D-Dimer: negative 2) Hx of Hypertension * Patient recommended for Verampil drip given heart rate refractory to Lopressor , Digoxin 3) Hx of Diabetes * Levemir 8 HS * Regular ISS * Accuchecks QAC and HS * check a1c * lipid panel : T, cholestrol: 125, LDL: 70, HDL: 36 * Home medication: Janumet, nateglinidie, Humalog at lunch, and lantus evening 4) History of lipid disorder * lipid panel : T, cholestrol: 125, LDL: 70, HDL: 36 * Home medication: omega 3 Fa, statin 5) Hx of Schizoaffective Disorder * Depakote ER 250mg PO HS * Seroquel 50mg PO HS 6) Vitamin D Deficiency * check vitamin D 7) Hx of Anemia * HgB Normal, MCV normal 8) History of known skin cancer * Patient denies melanoma history and has had skin removals in the past 9) Prophylaxis * Lovenox 65mg [id number] * Pepcid 20mg PO BID * Diet: Diabetic heart healthy diet
[2017-12-17] MEDS ORDERED: Sodium Chloride 0.9% 500 ML IV ONE ×2 (14:52→14:53)
--- NOTE | 2017-12-17 15:03 | CARD ---
APPROVED REPORT EXAM: Two-dimensional and M-mode echocardiogram with Doppler and color Doppler. Other Information Quality : GoodRhythm : INDICATION Atrial Fibrillation RISK FACTORS Hypertension Diabetes 2D DIMENSIONS IVSd1.0 (0.7-1.1cm)Aortic Root (2D)2.8 (2.0-3.7cm) LVDd3.7 (3.9-5.9cm)PWd0.8 (0.7-1.1cm) LVDs2.7 (2.5-4.0cm)FS (%) 26.7 % LVEF (%)62.0 (>50%) M-Mode DIMENSIONS RVDd1.53 (2.1-3.2cm)Left Atrium (MM)3.96 (2.5-4.0cm) IVSd0.91 (0.7-1.1cm)Aortic Root2.57 (2.2-3.7cm) LVDd4.02 (4.0-5.6cm)Aortic Cusp Exc.1.54 (1.5-2.0cm) PWd1.03 (0.7-1.1cm)FS (%) 38 % LVDs2.51 (2.0-3.8cm)LVEF (%)68 (>50%) Mitral Valve MV E Xlifvhqf034.4cm/sE/A ratio0.0 TDI E/Lateral E'0.0E/Medial E'0.0 Tricuspid Valve TR Peak [id number] Peak [id number] LEFT VENTRICLE The left ventricle is normal size. There is normal left ventricular wall thickness. The Ejection Fraction is 45-50%. The left atrial pressure is moderately elevated. RIGHT VENTRICLE The right ventricle is normal size. rv Systolic function is mildly to moderately reduced. ATRIA The left atrium is mildly dilated. The right atrium size is normal. The interatrial septum is intact with no evidence for an atrial septal defect. AORTIC VALVE The aortic valve is trileaflet. The aortic valve is mildly calcified. No aortic regurgitation is present. MITRAL VALVE The mitral valve is normal in structure. Mitral regurgitation is mild. TRICUSPID VALVE The tricuspid valve is normal in structure. There is mild tricuspid regurgitation. Right ventricular systolic pressure is estimated at 25 mmHg. There is no pulmonary hypertension. PULMONIC VALVE The pulmonary valve is normal in structure. There is trace pulmonic valvular regurgitation. GREAT VESSELS The aortic root is normal size. The aortic root displays mild sclerocalcific changes of the aortic root. The IVC is normal in size and collapses >50% with inspiration. PERICARDIAL EFFUSION small posterior pericardial effusion is noted. <Conclusion> pt asppears in rapid a,fib. The left ventricle is normal size. There is normal left ventricular wall thickness. The Ejection Fraction is 45-50%. The left atrial pressure is moderately elevated. rv Systolic function is mildly reduced. The left atrium is mildly dilated. The aortic valve is trileaflet. The aortic valve is mildly calcified. Mitral regurgitation is mild. There is mild tricuspid regurgitation. Right ventricular systolic pressure is estimated at 25 mmHg. There is no pulmonary hypertension. The aortic root is normal size. The aortic root displays mild sclerocalcific changes of the aortic root. small posterior pericardial effusion is noted.
--- NOTE | 2017-12-17 16:22 | CP.CCUPN ---
<Zenia Michael - Last Filed: 12/17/17 16:19> CCU Subjective - Physician Review Subjective (Free Text): Patient seen and examined at bedside. Offers no complaints at this time. Denies any fever, chills, chest pain, SOB, abdominal pain, changes in bowel habits or urinary symptoms. CCU Objective - Vital Signs / Intake & Output Vital Signs (Last 4 hours): Vital Signs Pulse Resp BP Pulse Ox 12/17/17 15:00 113 H 15 96 12/17/17 14:51 137 H 16 78/38 L 96 12/17/17 14:45 112 H 17 75/33 L 96 12/17/17 14:00 125 H 16 92 L 12/17/17 13:44 133 H 16 107/70 95 12/17/17 13:00 145 H 12 92 L 12/17/17 12:44 146 H 13 108/75 96 Intake and Output (Last 8hrs): Intake & Output 12/17/17 12/17/17 12/17/17 06:59 14:59 22:59 Intake Total 1000 438.7 500 Output Total 1100 650 250 Balance -100 -211.3 250 Weight 138 lb 6 oz 144 lb 6.444 oz Intake: Intake, IV Amount 1000 18.7 500 L AC 500 Left Antecubital 1000 18.7 0 Oral 0 420 0 Output: Urine 1100 650 250 Urine, Voided 1100 650 250 Other: # Bowel Movements 0 1 - Physical Exam Head: Positive for: Atraumatic, Normocephalic Respiratory/Chest: Positive for: Clear to Auscultation Cardiovascular: Positive for: Normal S1, S2, Irregular Rhythm, Tachycardic, Other (S4?). Negative for: Regular Rate and Rhythm, Murmurs Abdomen: Positive for: Normal Bowel Sounds. Negative for: Tenderness, Distention Lower Extremity: Positive for: Normal Inspection. Negative for: Edema Neurological: Positive for: GCS=15 Skin: Positive for: Warm, Dry, Normal Color Psychiatric: Positive for: Alert, Oriented x 3 - Medications Active Medications: Active Medications Generic Name Dose Route Start Last Admin Trade Name Freq PRN Reason Stop Dose Admin Aspirin 81 mg 12/17/17 10:00 12/17/17 09:41 Ecotrin PO 81 mg DAILY MUSA Administration Divalproex Sodium 250 mg 12/16/17 22:00 12/16/17 21:30 Depakote Er PO 250 mg HS MUSA Administration Enoxaparin Sodium 65 mg 12/17/17 22:00 Lovenox SC Q12 MUSA Famotidine 20 mg 12/17/17 18:00 Pepcid PO BID MUSA Verapamil HCl 40 mg/ Sodium 100 mls @ 12.5 mls/hr 12/16/17 20:00 12/17/17 12: 51 Chloride IV 12.5 mls/hr .Q8H MUSA Administration Protocol 5 MG/HR Insulin Detemir 8 unit 12/16/17 22:00 12/16/17 21:34 Levemir SC 8 unit HS MUSA Administration Insulin Human Regular 0 unit 12/16/17 22:00 12/17/17 11:36 Novolin R SC 2 unit ACHS MUSA Administration Protocol Metoprolol Tartrate 50 mg 12/17/17 06:21 12/17/17 10:59 Lopressor PO Not Given BID MUSA Quetiapine Fumarate 50 mg 12/16/17 22:00 12/16/17 21:31 Seroquel PO 50 mg HS MUSA Administration Rosuvastatin Calcium 5 mg 12/16/17 22:00 12/16/17 21:33 Crestor PO 5 mg HS MUSA Administration - Patient Studies Lab Studies: Lab Studies 12/17/17 12/17/17 12/17/17 Range/Units 15:57 11:07 07:45 WBC (4.8-10.8) K/uL RBC (4.40-5.90) Mil/uL Hgb (12.0-18.0) g/dL Hct (35.0-51.0) % MCV (80.0-94.0) fL MCH (27.0-31.0) pg MCHC (33.0-37.0) g/dL RDW (11.5-14.5) % Plt Count (130-400) K/uL MPV (7.2-11.7) fL Neut % (Auto) (50.0-75.0) % Lymph % (Auto) (20.0-40.0) % [place] % (Auto) (0.0-10.0) % Eos % (Auto) (0.0-4.0) % Baso % (Auto) (0.0-2.0) % Neut # (Auto) (1.8-7.0) K/uL Lymph # (Auto) (1.0-4.3) K/uL [place] # (Auto) (0.0-0.8) K/uL Eos # (Auto) (0.0-0.7) K/uL Baso # (Auto) (0.0-0.2) K/uL D-Dimer, Quantitative (0-243) ng/mlDDU Sodium (132-148) mmol/L Potassium (3.6-5.2) mmol/L Chloride (98-107) mmol/L Carbon Dioxide (22-30) mmol/L Anion Gap (10-20) BUN (9-20) mg/dL Creatinine (0.8-1.5) mg/dL Est GFR ( Amer) Est GFR (Non-Af Amer) POC Glucose (mg/dL) 218 H 227 H 88 (65-110) mg/dL Random Glucose (75-110) mg/dL Calcium (8.6-10.4) mg/dl Total Bilirubin (0.2-1.3) mg/dL AST (17-59) U/L ALT (21-72) U/L Alkaline Phosphatase (38-126) U/L Total Creatine Kinase (55-170) U/L CK-MB (Mass) (0.0-3.38) ng/mL Troponin I (0.00-0.120) ng/mL Total Protein (6.3-8.3) g/dL Albumin (3.5-5.0) g/dL Globulin (2.2-3.9) gm/dL Albumin/Globulin Ratio (1.0-2.1) Triglycerides (0-149) mg/dL Cholesterol (0-199) mg/dL LDL Cholesterol Direct (0-129) mg/dL HDL Cholesterol (30-70) mg/dL TSH 3rd Generation (0.46-4.68) mIU/L 12/17/17 12/17/17 12/16/17 Range/Units 06:01 06:01 21:54 WBC 7.4 (4.8-10.8) K/uL RBC 3.90 L (4.40-5.90) Mil/uL Hgb 12.6 (12.0-18.0) g/dL Hct 37.5 (35.0-51.0) % MCV 96.0 H (80.0-94.0) fL MCH 32.3 H (27.0-31.0) pg MCHC 33.6 (33.0-37.0) g/dL RDW 14.0 (11.5-14.5) % Plt Count 506 H (130-400) K/uL MPV 8.6 (7.2-11.7) fL Neut % (Auto) 37.5 L (50.0-75.0) % Lymph % (Auto) 49.9 H (20.0-40.0) % [place] % (Auto) 7.5 (0.0-10.0) % Eos % (Auto) 4.0 (0.0-4.0) % Baso % (Auto) 1.1 (0.0-2.0) % Neut # (Auto) 2.8 (1.8-7.0) K/uL Lymph # (Auto) 3.7 (1.0-4.3) K/uL [place] # (Auto) 0.6 (0.0-0.8) K/uL Eos # (Auto) 0.3 (0.0-0.7) K/uL Baso # (Auto) 0.1 (0.0-0.2) K/uL D-Dimer, Quantitative < 200 (0-243) ng/mlDDU Sodium 144 (132-148) mmol/L Potassium 4.3 (3.6-5.2) mmol/L Chloride 105 (98-107) mmol/L Carbon Dioxide 30 (22-30) mmol/L Anion Gap 14 (10-20) BUN 18 (9-20) mg/dL Creatinine 0.8 (0.8-1.5) mg/dL Est GFR ( Amer) > 60 Est GFR (Non-Af Amer) > 60 POC Glucose (mg/dL) (65-110) mg/dL Random Glucose 62 L (75-110) mg/dL Calcium 8.7 (8.6-10.4) mg/dl Total Bilirubin 0.5 (0.2-1.3) mg/dL AST 31 (17-59) U/L ALT 17 L D (21-72) U/L Alkaline Phosphatase 41 (38-126) U/L Total Creatine Kinase < 20 L (55-170) U/L CK-MB (Mass) 0.36 (0.0-3.38) ng/mL Troponin I < 0.0120 (0.00-0.120) ng/mL Total Protein 6.6 (6.3-8.3) g/dL Albumin 4.1 (3.5-5.0) g/dL Globulin 2.5 (2.2-3.9) gm/dL Albumin/Globulin Ratio 1.6 (1.0-2.1) Triglycerides 61 (0-149) mg/dL Cholesterol 125 (0-199) mg/dL LDL Cholesterol Direct 70 (0-129) mg/dL HDL Cholesterol 36 (30-70) mg/dL TSH 3rd Generation 6.28 H (0.46-4.68) mIU/L 12/16/17 12/16/17 12/16/17 Range/Units 21:54 20:13 17:15 WBC (4.8-10.8) K/uL RBC (4.40-5.90) Mil/uL Hgb (12.0-18.0) g/dL Hct (35.0-51.0) % MCV (80.0-94.0) fL MCH (27.0-31.0) pg MCHC (33.0-37.0) g/dL RDW (11.5-14.5) % Plt Count (130-400) K/uL MPV (7.2-11.7) fL Neut % (Auto) (50.0-75.0) % Lymph % (Auto) (20.0-40.0) % [place] % (Auto) (0.0-10.0) % Eos % (Auto) (0.0-4.0) % Baso % (Auto) (0.0-2.0) % Neut # (Auto) (1.8-7.0) K/uL Lymph # (Auto) (1.0-4.3) K/uL [place] # (Auto) (0.0-0.8) K/uL Eos # (Auto) (0.0-0.7) K/uL Baso # (Auto) (0.0-0.2) K/uL D-Dimer, Quantitative (0-243) ng/mlDDU Sodium (132-148) mmol/L Potassium (3.6-5.2) mmol/L Chloride (98-107) mmol/L Carbon Dioxide (22-30) mmol/L Anion Gap (10-20) BUN (9-20) mg/dL Creatinine (0.8-1.5) mg/dL Est GFR ( Amer) Est GFR (Non-Af Amer) POC Glucose (mg/dL) 197 H 127 H (65-110) mg/dL Random Glucose (75-110) mg/dL Calcium (8.6-10.4) mg/dl Total Bilirubin (0.2-1.3) mg/dL AST (17-59) U/L ALT (21-72) U/L Alkaline Phosphatase (38-126) U/L Total Creatine Kinase 29 L (55-170) U/L CK-MB (Mass) 0.29 (0.0-3.38) ng/mL Troponin I < 0.0120 (0.00-0.120) ng/mL Total Protein (6.3-8.3) g/dL Albumin (3.5-5.0) g/dL Globulin (2.2-3.9) gm/dL Albumin/Globulin Ratio (1.0-2.1) Triglycerides (0-149) mg/dL Cholesterol (0-199) mg/dL LDL Cholesterol Direct (0-129) mg/dL HDL Cholesterol (30-70) mg/dL TSH 3rd Generation (0.46-4.68) mIU/L Laboratory Results - last 24 hr 12/16/17 12/16/17 12/16/17 17:15 20:13 21:54 WBC RBC Hgb Hct MCV MCH MCHC RDW Plt Count MPV Neut % (Auto) Lymph % (Auto) [place] % (Auto) Eos % (Auto) Baso % (Auto) Neut # (Auto) Lymph # (Auto) [place] # (Auto) Eos # (Auto) Baso # (Auto) D-Dimer, Quantitative Sodium Potassium Chloride Carbon Dioxide Anion Gap BUN Creatinine Est GFR ( Amer) Est GFR (Non-Af Amer) POC Glucose (mg/dL) 127 H 197 H Random Glucose Calcium Total Bilirubin AST ALT Alkaline Phosphatase Total Creatine Kinase 29 L CK-MB (Mass) 0.29 Troponin I < 0.0120 Total Protein Albumin Globulin Albumin/Globulin Ratio Triglycerides Cholesterol LDL Cholesterol Direct HDL Cholesterol TSH 3rd Generation 12/16/17 12/17/17 12/17/17 21:54 06:01 06:01 WBC 7.4 RBC 3.90 L Hgb 12.6 Hct 37.5 MCV 96.0 H MCH 32.3 H MCHC 33.6 RDW 14.0 Plt Count 506 H MPV 8.6 Neut % (Auto) 37.5 L Lymph % (Auto) 49.9 H [place] % (Auto) 7.5 Eos % (Auto) 4.0 Baso % (Auto) 1.1 Neut # (Auto) 2.8 Lymph # (Auto) 3.7 [place] # (Auto) 0.6 Eos # (Auto) 0.3 Baso # (Auto) 0.1 D-Dimer, Quantitative < 200 Sodium 144 Potassium 4.3 Chloride 105 Carbon Dioxide 30 Anion Gap 14 BUN 18 Creatinine 0.8 Est GFR ( Amer) > 60 Est GFR (Non-Af Amer) > 60 POC Glucose (mg/dL) Random Glucose 62 L Calcium 8.7 Total Bilirubin 0.5 AST 31 ALT 17 L D Alkaline Phosphatase 41 Total Creatine Kinase < 20 L CK-MB (Mass) 0.36 Troponin I < 0.0120 Total Protein 6.6 Albumin 4.1 Globulin 2.5 Albumin/Globulin Ratio 1.6 Triglycerides 61 Cholesterol 125 LDL Cholesterol Direct 70 HDL Cholesterol 36 TSH 3rd Generation 6.28 H 12/17/17 12/17/17 12/17/17 07:45 11:07 15:57 WBC RBC Hgb Hct MCV MCH MCHC RDW Plt Count MPV Neut % (Auto) Lymph % (Auto) [place] % (Auto) Eos % (Auto) Baso % (Auto) Neut # (Auto) Lymph # (Auto) [place] # (Auto) Eos # (Auto) Baso # (Auto) D-Dimer, Quantitative Sodium Potassium Chloride Carbon Dioxide Anion Gap BUN Creatinine Est GFR ( Amer) Est GFR (Non-Af Amer) POC Glucose (mg/dL) 88 227 H 218 H Random Glucose Calcium Total Bilirubin AST ALT Alkaline Phosphatase Total Creatine Kinase CK-MB (Mass) Troponin I Total Protein Albumin Globulin Albumin/Globulin Ratio Triglycerides Cholesterol LDL Cholesterol Direct HDL Cholesterol TSH 3rd Generation Fingerstick Blood Sugar Results: 227 Review of Systems - Review of Systems Review of Systems: As per Subjective Critical Care Progress Note - Nutrition Nutrition: Nutrition Category Date Time Status Diabetic [Consistent Carbohydrate] [DIET] Diets 12/16/17 Dinner Active Assessment/Plan - Assessment and Plan (Free Text) Assessment: 77 year old male with a PMHx of HTN, DM II, Schizoaffective disorder and Anemia who was sent by provider in [facility] due to rapid heart rate and elevated blood pressure. EKG on Admission showed Atrial Flutter. Plan: Neuro GCS: 15 Sedation: N/A Cardio Pressors: None A: Atrial Flutter, Hx of HTN ED: 4 doses of Metoprolol 5, 0.5mg digoxin IVP ONCE EKG (Adm): Atrial Flutter CXR (12/16): No Active Pulm Disease Cardiology Consulted (Dr. Haskins) Recs Appreciated ECHO (12/16): EF=45-50%, No Pulm HTN, mild sclerocalcific changes of the aortic root. Small posterior pericardial effusion. See Full Report for more details Per Cardio patient likely may require MASOUD with cardioversion Lovenox 80 Q12H Verapamil Drip Cont. Home ASA 81 Metoprolol 50 BID Pulm No active issues GI No Active issues Heme/Onc A: Hx of Anemia HgB Stable Endo A: DM II Levemir 8 HS Regular ISS Psych A: Schozoaffective Disorder Depakote ER 250mg PO HS Seroquel 50mg PO HS Proph Lovenox No idication for GI Proph Diet: Diabetic Patient seen and discussed with ICU Attending Zenia Michael, PGY-1 <Acosta Tovar S - Last Filed: 12/17/17 17:59> CCU Objective - Vital Signs / Intake & Output Vital Signs (Last 4 hours): Vital Signs Pulse Resp BP Pulse Ox 12/17/17 17:02 125 H 16 103/69 95 12/17/17 17:00 132 H 18 95 12/17/17 16:02 111 H 10 L 98/53 L 100 12/17/17 16:00 115 H 16 97 12/17/17 15:08 112 H 16 87/47 L 94 L 12/17/17 15:00 113 H 15 96 12/17/17 14:51 137 H 16 78/38 L 96 12/17/17 14:45 112 H 17 75/33 L 96 12/17/17 14:00 125 H 16 92 L Intake and Output (Last 8hrs): Intake & Output 12/17/17 12/17/17 12/17/17 06:59 14:59 22:59 Intake Total 1000 438.7 1250 Output Total 1100 650 450 Balance -100 -211.3 800 Weight 138 lb 6 oz 144 lb 6.444 oz Intake: Intake, IV Amount 1000 18.7 1000 L AC 1000 Left Antecubital 1000 18.7 0 Oral 0 420 250 Output: Urine 1100 650 450 Urine, Voided 1100 650 450 Other: # Bowel Movements 0 1 - Medications Active Medications: Active Medications Generic Name Dose Route Start Last Admin Trade Name Freq PRN Reason Stop Dose Admin Aspirin 81 mg 12/17/17 10:00 12/17/17 09:41 Ecotrin PO 81 mg DAILY MUSA Administration Divalproex Sodium 250 mg 12/16/17 22:00 12/16/17 21:30 Depakote Er PO 250 mg HS MUSA Administration Enoxaparin Sodium 65 mg 12/17/17 22:00 Lovenox SC Q12 MUSA Famotidine 20 mg 12/17/17 18:00 Pepcid PO BID MUSA Verapamil HCl 40 mg/ Sodium 100 mls @ 12.5 mls/hr 12/16/17 20:00 12/17/17 12: 51 Chloride IV 12.5 mls/hr .Q8H MUSA Administration Protocol 5 MG/HR Insulin Detemir 8 unit 12/16/17 22:00 12/16/17 21:34 Levemir SC 8 unit HS MUSA Administration Insulin Human Regular 0 unit 12/16/17 22:00 12/17/17 17:08 Novolin R SC 2 unit ACHS MUSA Administration Protocol Metoprolol Tartrate 50 mg 12/17/17 06:21 12/17/17 10:59 Lopressor PO Not Given BID MUSA Quetiapine Fumarate 50 mg 12/16/17 22:00 12/16/17 21:31 Seroquel PO 50 mg HS MUSA Administration Rosuvastatin Calcium 5 mg 12/16/17 22:00 12/16/17 21:33 Crestor PO 5 mg HS MUSA Administration - Patient Studies Lab Studies: Lab Studies 12/17/17 12/17/17 12/17/17 Range/Units 15:57 11:07 07:45 WBC (4.8-10.8) K/uL RBC (4.40-5.90) Mil/uL Hgb (12.0-18.0) g/dL Hct (35.0-51.0) % MCV (80.0-94.0) fL MCH (27.0-31.0) pg MCHC (33.0-37.0) g/dL RDW (11.5-14.5) % Plt Count (130-400) K/uL MPV (7.2-11.7) fL Neut % (Auto) (50.0-75.0) % Lymph % (Auto) (20.0-40.0) % [place] % (Auto) (0.0-10.0) % Eos % (Auto) (0.0-4.0) % Baso % (Auto) (0.0-2.0) % Neut # (Auto) (1.8-7.0) K/uL Lymph # (Auto) (1.0-4.3) K/uL [place] # (Auto) (0.0-0.8) K/uL Eos # (Auto) (0.0-0.7) K/uL Baso # (Auto) (0.0-0.2) K/uL D-Dimer, Quantitative (0-243) ng/mlDDU Sodium (132-148) mmol/L Potassium (3.6-5.2) mmol/L Chloride (98-107) mmol/L Carbon Dioxide (22-30) mmol/L Anion Gap (10-20) BUN (9-20) mg/dL Creatinine (0.8-1.5) mg/dL Est GFR ( Amer) Est GFR (Non-Af Amer) POC Glucose (mg/dL) 218 H 227 H 88 (65-110) mg/dL Random Glucose (75-110) mg/dL Calcium (8.6-10.4) mg/dl Total Bilirubin (0.2-1.3) mg/dL AST (17-59) U/L ALT (21-72) U/L Alkaline Phosphatase (38-126) U/L Total Creatine Kinase (55-170) U/L CK-MB (Mass) (0.0-3.38) ng/mL Troponin I (0.00-0.120) ng/mL Total Protein (6.3-8.3) g/dL Albumin (3.5-5.0) g/dL Globulin (2.2-3.9) gm/dL Albumin/Globulin Ratio (1.0-2.1) Triglycerides (0-149) mg/dL Cholesterol (0-199) mg/dL LDL Cholesterol Direct (0-129) mg/dL HDL Cholesterol (30-70) mg/dL TSH 3rd Generation (0.46-4.68) mIU/L 12/17/17 12/17/17 12/16/17 Range/Units 06:01 06:01 21:54 WBC 7.4 (4.8-10.8) K/uL RBC 3.90 L (4.40-5.90) Mil/uL Hgb 12.6 (12.0-18.0) g/dL Hct 37.5 (35.0-51.0) % MCV 96.0 H (80.0-94.0) fL MCH 32.3 H (27.0-31.0) pg MCHC 33.6 (33.0-37.0) g/dL RDW 14.0 (11.5-14.5) % Plt Count 506 H (130-400) K/uL MPV 8.6 (7.2-11.7) fL Neut % (Auto) 37.5 L (50.0-75.0) % Lymph % (Auto) 49.9 H (20.0-40.0) % [place] % (Auto) 7.5 (0.0-10.0) % Eos % (Auto) 4.0 (0.0-4.0) % Baso % (Auto) 1.1 (0.0-2.0) % Neut # (Auto) 2.8 (1.8-7.0) K/uL Lymph # (Auto) 3.7 (1.0-4.3) K/uL [place] # (Auto) 0.6 (0.0-0.8) K/uL Eos # (Auto) 0.3 (0.0-0.7) K/uL Baso # (Auto) 0.1 (0.0-0.2) K/uL D-Dimer, Quantitative < 200 (0-243) ng/mlDDU Sodium 144 (132-148) mmol/L Potassium 4.3 (3.6-5.2) mmol/L Chloride 105 (98-107) mmol/L Carbon Dioxide 30 (22-30) mmol/L Anion Gap 14 (10-20) BUN 18 (9-20) mg/dL Creatinine 0.8 (0.8-1.5) mg/dL Est GFR ( Amer) > 60 Est GFR (Non-Af Amer) > 60 POC Glucose (mg/dL) (65-110) mg/dL Random Glucose 62 L (75-110) mg/dL Calcium 8.7 (8.6-10.4) mg/dl Total Bilirubin 0.5 (0.2-1.3) mg/dL AST 31 (17-59) U/L ALT 17 L D (21-72) U/L Alkaline Phosphatase 41 (38-126) U/L Total Creatine Kinase < 20 L (55-170) U/L CK-MB (Mass) 0.36 (0.0-3.38) ng/mL Troponin I < 0.0120 (0.00-0.120) ng/mL Total Protein 6.6 (6.3-8.3) g/dL Albumin 4.1 (3.5-5.0) g/dL Globulin 2.5 (2.2-3.9) gm/dL Albumin/Globulin Ratio 1.6 (1.0-2.1) Triglycerides 61 (0-149) mg/dL Cholesterol 125 (0-199) mg/dL LDL Cholesterol Direct 70 (0-129) mg/dL HDL Cholesterol 36 (30-70) mg/dL TSH 3rd Generation 6.28 H (0.46-4.68) mIU/L 12/16/17 12/16/17 12/16/17 Range/Units 21:54 20:13 17:15 WBC (4.8-10.8) K/uL RBC (4.40-5.90) Mil/uL Hgb (12.0-18.0) g/dL Hct (35.0-51.0) % MCV (80.0-94.0) fL MCH (27.0-31.0) pg MCHC (33.0-37.0) g/dL RDW (11.5-14.5) % Plt Count (130-400) K/uL MPV (7.2-11.7) fL Neut % (Auto) (50.0-75.0) % Lymph % (Auto) (20.0-40.0) % [place] % (Auto) (0.0-10.0) % Eos % (Auto) (0.0-4.0) % Baso % (Auto) (0.0-2.0) % Neut # (Auto) (1.8-7.0) K/uL Lymph # (Auto) (1.0-4.3) K/uL [place] # (Auto) (0.0-0.8) K/uL Eos # (Auto) (0.0-0.7) K/uL Baso # (Auto) (0.0-0.2) K/uL D-Dimer, Quantitative (0-243) ng/mlDDU Sodium (132-148) mmol/L Potassium (3.6-5.2) mmol/L Chloride (98-107) mmol/L Carbon Dioxide (22-30) mmol/L Anion Gap (10-20) BUN (9-20) mg/dL Creatinine (0.8-1.5) mg/dL Est GFR ( Amer) Est GFR (Non-Af Amer) POC Glucose (mg/dL) 197 H 127 H (65-110) mg/dL Random Glucose (75-110) mg/dL Calcium (8.6-10.4) mg/dl Total Bilirubin (0.2-1.3) mg/dL AST (17-59) U/L ALT (21-72) U/L Alkaline Phosphatase (38-126) U/L Total Creatine Kinase 29 L (55-170) U/L CK-MB (Mass) 0.29 (0.0-3.38) ng/mL Troponin I < 0.0120 (0.00-0.120) ng/mL Total Protein (6.3-8.3) g/dL Albumin (3.5-5.0) g/dL Globulin (2.2-3.9) gm/dL Albumin/Globulin Ratio (1.0-2.1) Triglycerides (0-149) mg/dL Cholesterol (0-199) mg/dL LDL Cholesterol Direct (0-129) mg/dL HDL Cholesterol (30-70) mg/dL TSH 3rd Generation (0.46-4.68) mIU/L Laboratory Results - last 24 hr 12/16/17 12/16/17 12/16/17 17:15 20:13 21:54 WBC RBC Hgb Hct MCV MCH MCHC RDW Plt Count MPV Neut % (Auto) Lymph % (Auto) [place] % (Auto) Eos % (Auto) Baso % (Auto) Neut # (Auto) Lymph # (Auto) [place] # (Auto) Eos # (Auto) Baso # (Auto) D-Dimer, Quantitative Sodium Potassium Chloride Carbon Dioxide Anion Gap BUN Creatinine Est GFR ( Amer) Est GFR (Non-Af Amer) POC Glucose (mg/dL) 127 H 197 H Random Glucose Calcium Total Bilirubin AST ALT Alkaline Phosphatase Total Creatine Kinase 29 L CK-MB (Mass) 0.29 Troponin I < 0.0120 Total Protein Albumin Globulin Albumin/Globulin Ratio Triglycerides Cholesterol LDL Cholesterol Direct HDL Cholesterol TSH 3rd Generation 12/16/17 12/17/17 12/17/17 21:54 06:01 06:01 WBC 7.4 RBC 3.90 L Hgb 12.6 Hct 37.5 MCV 96.0 H MCH 32.3 H MCHC 33.6 RDW 14.0 Plt Count 506 H MPV 8.6 Neut % (Auto) 37.5 L Lymph % (Auto) 49.9 H [place] % (Auto) 7.5 Eos % (Auto) 4.0 Baso % (Auto) 1.1 Neut # (Auto) 2.8 Lymph # (Auto) 3.7 [place] # (Auto) 0.6 Eos # (Auto) 0.3 Baso # (Auto) 0.1 D-Dimer, Quantitative < 200 Sodium 144 Potassium 4.3 Chloride 105 Carbon Dioxide 30 Anion Gap 14 BUN 18 Creatinine 0.8 Est GFR ( Amer) > 60 Est GFR (Non-Af Amer) > 60 POC Glucose (mg/dL) Random Glucose 62 L Calcium 8.7 Total Bilirubin 0.5 AST 31 ALT 17 L D Alkaline Phosphatase 41 Total Creatine Kinase < 20 L CK-MB (Mass) 0.36 Troponin I < 0.0120 Total Protein 6.6 Albumin 4.1 Globulin 2.5 Albumin/Globulin Ratio 1.6 Triglycerides 61 Cholesterol 125 LDL Cholesterol Direct 70 HDL Cholesterol 36 TSH 3rd Generation 6.28 H 12/17/17 12/17/17 12/17/17 07:45 11:07 15:57 WBC RBC Hgb Hct MCV MCH MCHC RDW Plt Count MPV Neut % (Auto) Lymph % (Auto) [place] % (Auto) Eos % (Auto) Baso % (Auto) Neut # (Auto) Lymph # (Auto) [place] # (Auto) Eos # (Auto) Baso # (Auto) D-Dimer, Quantitative Sodium Potassium Chloride Carbon Dioxide Anion Gap BUN Creatinine Est GFR ( Amer) Est GFR (Non-Af Amer) POC Glucose (mg/dL) 88 227 H 218 H Random Glucose Calcium Total Bilirubin AST ALT Alkaline Phosphatase Total Creatine Kinase CK-MB (Mass) Troponin I Total Protein Albumin Globulin Albumin/Globulin Ratio Triglycerides Cholesterol LDL Cholesterol Direct HDL Cholesterol TSH 3rd Generation Critical Care Progress Note - Nutrition Nutrition: Nutrition Category Date Time Status Diabetic [Consistent Carbohydrate] [DIET] Diets 12/16/17 Dinner Active Attending/Attestation - Attestation I have personally seen and examined this patient.: Yes I have fully participated in the care of the patient.: Yes I have reviewed all pertinent clinical information: Yes Notes (Text): 12/17/17 17:57 Patient seen and examined in the intensive care unit. 77-year-old male admitted with atrial flutter with rapid response Initially started on verapamil drip which was stopped overnight for hypotension Continue Lovenox for MASOUD cardioversion tomorrow
[2017-12-17] MEDS ORDERED: Digoxin 500 mcg/2ml (0.5 mg/2ml) Inj IVP ONE (17:12)
[2017-12-17 17:26] VITALS: PULSE 144
[2017-12-17] MEDS: Insulin Detemir 100 units/ml Vial (Levemir) SC SCH (21:58)
[2017-12-18] MEDS: Verapamil 40 MG in Sodium Chloride 0.9% 84 ML IV SCH (04:27)
[2017-12-18 06:51] LABS: BASO # 0.1 K/uL (0.0-0.2); BASO % 0.9 % (0.0-2.0); EOS # 0.4 K/uL (0.0-0.7); EOS % 5.4 % (0.0-4.0); LYMPH # 3.3 K/uL (1.0-4.3); LYMPH % 41.2 % (20.0-40.0); MEAN CELL VOLUME 95.5 fL (80.0-94.0); MEAN CORPUSCULAR HEMOGLOBIN 33.4 pg (27.0-31.0); MEAN CORPUSCULAR HGB CONC 34.9 g/dL (33.0-37.0); MEAN PLATELET VOLUME 8.8 fL (7.2-11.7); MONO # 0.5 K/uL (0.0-0.8); MONO % 6.7 % (0.0-10.0); NEUT # 3.6 K/uL (1.8-7.0); NEUT % 45.8 % (50.0-75.0); RBC 3.89 Mil/uL (4.40-5.90); RED CELL DISTRIBUTION WIDTH 13.9 % (11.5-14.5); WHITE BLOOD COUNT 7.9 K/uL (4.8-10.8)
[2017-12-18 06:59] LABS: ALB/GLOB RATIO 1.3 (1.0-2.1); ALBUMIN 3.6 g/dL (3.5-5.0); ALT/SGPT 21 U/L (21-72); AST/SGOT 20 U/L (17-59); BLOOD UREA NITROGEN 15 mg/dL (9-20); CALCIUM 8.8 mg/dl (8.6-10.4); GFR AFRICAN-AMERICAN > 60; GFR NON-AFRICAN AMERICAN > 60
[2017-12-18] MEDS: (Novolin R) Insulin Human Regular 100 units/ml vial SC SCH ×4 (07:42→21:36)
[2017-12-18] MEDS ORDERED: Verapamil 40 MG in Sodium Chloride 0.9% 84 ML IV PRN (09:30)
[2017-12-18] MEDS ORDERED: Lidocaine 4% (Laryng-O-Jet) Kit MM ONE (09:33)
[2017-12-18] MEDS: Enoxaparin 80 mg Syringe SC SCH (09:36)
[2017-12-18] MEDS ORDERED: Midazolam 2 MG/2 ML VIAL ONE (09:46)
[2017-12-18] MEDS ORDERED: Propofol 10 mg/ml Inj (20 ML) ONE (09:47)
[2017-12-18] MEDS ORDERED: Etomidate 20 mg/10ml Inj IV ONE (09:52)
[2017-12-18] MEDS ORDERED: Phenylephrine 10 mg/ml Inj ONE (09:52)
--- NOTE | 2017-12-18 12:46 | CP.PCM.PN ---
Subjective - Date & Time of Evaluation Date of Evaluation: 12/18/17 Time of Evaluation: 10:00 - Subjective Subjective: MASOUD performed. no LA thrombus. Normal LV function. successful cardioversion perfomred. recommend Eliquis 5 mg BID. stop Verapmil, continue lopressor. d/c lovenix. Likley d/c home tomorrow. Objective - Vital Signs/Intake and Output Vital Signs (last 24 hours): Temp Pulse Resp BP Pulse Ox 97.6 F 89 16 99/62 L 97 12/18/17 12:00 12/18/17 12:34 12/18/17 12:34 12/18/17 12:34 12/18/17 12:34 Intake and Output: 12/18/17 12/18/17 06:59 18:59 Intake Total 500 12.5 Output Total 1350 500 Balance -850 -487.5 - Medications Medications: Current Medications Aspirin (Ecotrin) 81 mg PO DAILY [facility] Last Admin: 12/18/17 09:33 Dose: Not Given Divalproex Sodium (Depakote Er) 250 mg PO [facility] Last Admin: 12/17/17 21:58 Dose: 250 mg Enoxaparin Sodium (Lovenox) 65 mg SC Q12 [facility] Last Admin: 12/18/17 09:36 Dose: Not Given Famotidine (Pepcid) 20 mg PO BID [facility] Last Admin: 12/18/17 09:36 Dose: Not Given Insulin Detemir (Levemir) 8 unit SC [facility] Last Admin: 12/17/17 21:58 Dose: Not Given Insulin Human Regular (Novolin R) 0 unit SC [facility] PRN Reason: Protocol Last Admin: 12/18/17 07:42 Dose: Not Given Metoprolol Tartrate (Lopressor) 25 mg PO BID [facility] Quetiapine Fumarate (Seroquel) 50 mg PO [facility] Last Admin: 12/17/17 22:01 Dose: 50 mg Rosuvastatin Calcium (Crestor) 5 mg PO [facility] Last Admin: 12/17/17 21:58 Dose: 5 mg - Labs Labs: 12/18/17 06:28 12/18/17 06:28 PT 11.9 SECONDS (9.7-12.2) 12/16/17 14:04 INR 1.1 12/16/17 14:04 APTT 32 SECONDS (21-34) 12/16/17 14:04 Assessment and Plan (1) Atrial flutter Status: Acute
--- NOTE | 2017-12-18 16:01 | CP.PCM.PN ---
Subjective - Date & Time of Evaluation Date of Evaluation: 12/18/17 Time of Evaluation: 15:40 - Subjective Subjective: Medical Attending Note: Patient seen and examined. Patient reports he is feeling well. Denies acute complaints. Patient reports he is eating well, doing well. Objective - Vital Signs/Intake and Output Vital Signs (last 24 hours): Temp Pulse Resp BP Pulse Ox 97.6 F 97 H 17 104/62 94 L 12/18/17 12:00 12/18/17 15:34 12/18/17 15:34 12/18/17 15:34 12/18/17 15:34 Intake and Output: 12/18/17 12/18/17 06:59 18:59 Intake Total 500 12.5 Output Total 1350 500 Balance -850 -487.5 - Medications Medications: Current Medications Aspirin (Ecotrin) 81 mg PO DAILY [facility] Last Admin: 12/18/17 09:33 Dose: Not Given Divalproex Sodium (Depakote Er) 250 mg PO [facility] Last Admin: 12/17/17 21:58 Dose: 250 mg Enoxaparin Sodium (Lovenox) 65 mg SC Q12 [facility] Last Admin: 12/18/17 09:36 Dose: Not Given Famotidine (Pepcid) 20 mg PO BID [facility] Last Admin: 12/18/17 09:36 Dose: Not Given Insulin Detemir (Levemir) 8 unit SC [facility] Last Admin: 12/17/17 21:58 Dose: Not Given Insulin Human Regular (Novolin R) 0 unit SC [facility] PRN Reason: Protocol Last Admin: 12/18/17 11:30 Dose: Not Given Metoprolol Tartrate (Lopressor) 25 mg PO BID [facility] Quetiapine Fumarate (Seroquel) 50 mg PO [facility] Last Admin: 12/17/17 22:01 Dose: 50 mg Rosuvastatin Calcium (Crestor) 5 mg PO [facility] Last Admin: 12/17/17 21:58 Dose: 5 mg - Labs Labs: 12/18/17 06:28 12/18/17 06:28 PT 11.9 SECONDS (9.7-12.2) 12/16/17 14:04 INR 1.1 12/16/17 14:04 APTT 32 SECONDS (21-34) 12/16/17 14:04 - Constitutional Appears: Non-toxic, No Acute Distress - Head Exam Head Exam: NORMAL INSPECTION - Eye Exam Eye Exam: EOMI - ENT Exam ENT Exam: Mucous Membranes Moist - Respiratory Exam Respiratory Exam: Clear to Ausculation Bilateral, NORMAL BREATHING PATTERN. absent: Rales, Rhonchi, Wheezes - Cardiovascular Exam Cardiovascular Exam: REGULAR RHYTHM, +S1, +S2 - GI/Abdominal Exam GI & Abdominal Exam: Soft, Normal Bowel Sounds. absent: Distended, Firm, Guarding, Rigid, Tenderness, Rebound - Extremities Exam Extremities Exam: absent: Pedal Edema, Tenderness - Neurological Exam Neurological Exam: Alert, Awake, Oriented x3 Neuro motor strength exam: Left Upper Extremity: 5, Right Upper Extremity: 5, Left Lower Extremity: 5, Right Lower Extremity: 5 - Psychiatric Exam Psychiatric exam: Normal Affect, Normal Mood - Skin Skin Exam: Dry, Intact, Normal Color, Warm Assessment and Plan (1) Atrial flutter Status: Acute (2) Hypertension Status: Chronic (3) Diabetes Status: Chronic (4) Schizoaffective disorder Status: Chronic (5) Skin cancer Status: Chronic (6) Prophylactic measure Status: Acute Attending/Attestation - Attestation I have personally seen and examined this patient.: Yes I have fully participated in the care of the patient.: Yes I have reviewed all pertinent clinical information, including history, physical exam and plan: Yes Notes (Text): Assessment/Plan 1) Atrial Flutter * Cardiology Consulted (Dr. Haskins) Recs Appreciated * Echocardiogram (12/17/17): appears in rapid afib. * Left ventricle is normal size normal left ventricular wall thcikness. ejection fraction: 45-50%, left atrial pressure is moderate elevated, systolic function is mildly reduced. left atrium is mildy dilated, aortic valve is trileaflet, aortic valve is mildly calcified, mitral regurgitation is mild, mild tricupid regurgitation, right ventricular systolic pressure ~ 25mmgHg, no pulmonary hypertension, aortic root is normal size, aortic root displays mild sclerocalcific changes of the aortic root. small posterior pericardial effusion is noted. * Patient underwent MASOUD and cardioversion today, required one shock remains in sinus. Discussed with cardiology, recommend for a beta dianne and anticoagulant. Observe overnight. possible discharge in the morning. * EKG (Adm): Atrial Flutter * CXR (12/16): No Active Pulm Disease * Eliquis 5mg PO BID * Aspirin 81mg PO daily * Lopressor 50mg PO bid * BRAULIO X3 negative * D-Dimer: negative 2) Hx of Hypertension * Lopressor 50mg PO bid 3) Hx of Diabetes (controlled) * Levemir 8 HS * Regular ISS * Accuchecks QAC and HS * a1c: 5.9 * lipid panel : T, cholestrol: 125, LDL: 70, HDL: 36 * Home medication: Janumet, nateglinidie, Humalog at lunch, and lantus evening 4) History of lipid disorder * lipid panel : T, cholestrol: 125, LDL: 70, HDL: 36 * Home medication: omega 3 Fa, statin 5) Hx of Schizoaffective Disorder * Depakote ER 250mg PO HS * Seroquel 50mg PO HS 6) Vitamin D Deficiency * check vitamin D 7) Hx of Anemia * HgB Normal, MCV normal 8) History of known skin cancer * Patient denies melanoma history and has had skin removals in the past 9) Prophylaxis * Switched to Eliquis 5mg PO BID * Pepcid 20mg PO BID * Diet: Diabetic heart healthy diet
--- NOTE | 2017-12-18 19:45 | CP.CCUPN ---
<Zenia Michael - Last Filed: 12/18/17 19:39> CCU Subjective - Physician Review Subjective (Free Text): Patient seen and examined at bedside. Offers no complaints at this time. Denies any fever, chills, chest pain, SOB, abdominal pain, changes in bowel habits or urinary symptoms. CCU Objective - Vital Signs / Intake & Output Vital Signs (Last 4 hours): Vital Signs Temp Pulse Resp BP Pulse Ox 12/18/17 19:04 91 H 18 110/70 95 12/18/17 19:00 98 H 12 95 12/18/17 18:49 91 H 23 99/57 L 96 12/18/17 18:48 95/57 L 12/18/17 18:34 92 H 20 95/57 L 96 12/18/17 18:19 94 H 22 98/58 L 95 12/18/17 18:04 96 H 18 105/59 L 95 12/18/17 18:00 101 H 15 98 12/18/17 17:49 92 H 12 98/57 L 98 12/18/17 17:34 94 H 17 100/57 L 97 12/18/17 17:19 95 H 18 107/58 L 96 12/18/17 17:05 99 H 15 116/70 97 12/18/17 17:00 96 H 17 97 12/18/17 16:34 100 H 19 122/73 97 12/18/17 16:19 95 H 10 L 112/65 97 12/18/17 16:04 99 H 13 119/70 95 12/18/17 16:00 98.0 F 98 H 11 L 98 12/18/17 15:49 95 H 17 107/63 95 Intake and Output (Last 8hrs): Intake & Output 12/18/17 12/18/17 12/18/17 06:59 14:59 22:59 Intake Total 300 12.5 0 Output Total 1050 500 400 Balance -750 -487.5 -400 Weight 144 lb 4.8 oz Intake: Intake, IV Amount 12.5 0 L AC 12.5 0 Left Antecubital 0 0 Oral 300 Output: Urine 1050 500 400 Urine, Voided 1050 500 400 Other: # Voids Urine, Voided 1 1 - Physical Exam Head: Positive for: Atraumatic, Normocephalic Respiratory/Chest: Positive for: Clear to Auscultation Cardiovascular: Positive for: Normal S1, S2, Irregular Rhythm, Tachycardic, Other (S4?). Negative for: Regular Rate and Rhythm, Murmurs Abdomen: Positive for: Normal Bowel Sounds. Negative for: Tenderness, Distention Lower Extremity: Positive for: Normal Inspection. Negative for: Edema Neurological: Positive for: GCS=15 Skin: Positive for: Warm, Dry, Normal Color Psychiatric: Positive for: Alert, Oriented x 3 - Medications Active Medications: Active Medications Generic Name Dose Route Start Last Admin Trade Name Freq PRN Reason Stop Dose Admin Apixaban 5 mg 12/18/17 22:00 Eliquis PO BID [facility] Aspirin 81 mg 12/17/17 10:00 12/18/17 09:33 Ecotrin PO Not Given DAILY [facility] Divalproex Sodium 250 mg 12/16/17 22:00 12/17/17 21:58 Depakote Er PO 250 mg HS [facility] Administration Famotidine 20 mg 12/17/17 18:00 12/18/17 18:57 Pepcid PO 20 mg BID [facility] Administration Insulin Detemir 8 unit 12/16/17 22:00 12/17/17 21:58 Levemir SC Not Given HS [facility] Insulin Human Regular 0 unit 12/16/17 22:00 12/18/17 16:09 Novolin R SC 5 unit ACHS [facility] Administration Protocol Metoprolol Tartrate 25 mg 12/18/17 11:47 12/18/17 18:48 Lopressor PO Not Given BID [facility] Quetiapine Fumarate 50 mg 12/16/17 22:00 12/17/17 22:01 Seroquel PO 50 mg HS [facility] Administration Rosuvastatin Calcium 5 mg 12/16/17 22:00 12/17/17 21:58 Crestor PO 5 mg HS MUSA Administration - Patient Studies Lab Studies: Microbiology Studies 12/16/17 21:54 MRSA Culture (Admit) - Final Naris MRSA NOT DETECTED Lab Studies 12/18/17 12/18/17 12/18/17 Range/Units 16:02 11:26 07:15 WBC (4.8-10.8) K/uL RBC (4.40-5.90) Mil/uL Hgb (12.0-18.0) g/dL Hct (35.0-51.0) % MCV (80.0-94.0) fL MCH (27.0-31.0) pg MCHC (33.0-37.0) g/dL RDW (11.5-14.5) % Plt Count (130-400) K/uL MPV (7.2-11.7) fL Neut % (Auto) (50.0-75.0) % Lymph % (Auto) (20.0-40.0) % [place] % (Auto) (0.0-10.0) % Eos % (Auto) (0.0-4.0) % Baso % (Auto) (0.0-2.0) % Neut # (Auto) (1.8-7.0) K/uL Lymph # (Auto) (1.0-4.3) K/uL [place] # (Auto) (0.0-0.8) K/uL Eos # (Auto) (0.0-0.7) K/uL Baso # (Auto) (0.0-0.2) K/uL Sodium (132-148) mmol/L Potassium (3.6-5.2) mmol/L Chloride (98-107) mmol/L Carbon Dioxide (22-30) mmol/L Anion Gap (10-20) BUN (9-20) mg/dL Creatinine (0.8-1.5) mg/dL Est GFR ( Amer) Est GFR (Non-Af Amer) POC Glucose (mg/dL) 374 H 186 H 149 H (65-110) mg/dL Random Glucose (75-110) mg/dL Hemoglobin A1c (4.2-6.5) % Calcium (8.6-10.4) mg/dl Phosphorus (2.5-4.5) mg/dL Magnesium (1.6-2.3) mg/dL Total Bilirubin (0.2-1.3) mg/dL AST (17-59) U/L ALT (21-72) U/L Alkaline Phosphatase (38-126) U/L Total Protein (6.3-8.3) g/dL Albumin (3.5-5.0) g/dL Globulin (2.2-3.9) gm/dL Albumin/Globulin Ratio (1.0-2.1) 12/18/17 12/18/1718 Range/Units 06:30 06:28 06:28 WBC 7.9 (4.8-10.8) K/uL RBC 3.89 L (4.40-5.90) Mil/uL Hgb 13.0 (12.0-18.0) g/dL Hct 37.1 (35.0-51.0) % MCV 95.5 H (80.0-94.0) fL MCH 33.4 H (27.0-31.0) pg MCHC 34.9 (33.0-37.0) g/dL RDW 13.9 (11.5-14.5) % Plt Count 532 H (130-400) K/uL MPV 8.8 (7.2-11.7) fL Neut % (Auto) 45.8 L (50.0-75.0) % Lymph % (Auto) 41.2 H (20.0-40.0) % [place] % (Auto) 6.7 (0.0-10.0) % Eos % (Auto) 5.4 H (0.0-4.0) % Baso % (Auto) 0.9 (0.0-2.0) % Neut # (Auto) 3.6 (1.8-7.0) K/uL Lymph # (Auto) 3.3 (1.0-4.3) K/uL [place] # (Auto) 0.5 (0.0-0.8) K/uL Eos # (Auto) 0.4 (0.0-0.7) K/uL Baso # (Auto) 0.1 (0.0-0.2) K/uL Sodium 145 (132-148) mmol/L Potassium 4.0 (3.6-5.2) mmol/L Chloride 104 (98-107) mmol/L Carbon Dioxide 29 (22-30) mmol/L Anion Gap 16 (10-20) BUN 15 (9-20) mg/dL Creatinine 0.8 (0.8-1.5) mg/dL Est GFR ( Amer) > 60 Est GFR (Non-Af Amer) > 60 POC Glucose (mg/dL) (65-110) mg/dL Random Glucose 128 H (75-110) mg/dL Hemoglobin A1c 5.9 (4.2-6.5) % Calcium 8.8 (8.6-10.4) mg/dl Phosphorus 3.8 (2.5-4.5) mg/dL Magnesium 1.9 (1.6-2.3) mg/dL Total Bilirubin 0.3 (0.2-1.3) mg/dL AST 20 (17-59) U/L ALT 21 D (21-72) U/L Alkaline Phosphatase 51 (38-126) U/L Total Protein 6.3 (6.3-8.3) g/dL Albumin 3.6 (3.5-5.0) g/dL Globulin 2.7 (2.2-3.9) gm/dL Albumin/Globulin Ratio 1.3 (1.0-2.1) / Range/Units 21:18 WBC (4.8-10.8) K/uL RBC (4.40-5.90) Mil/uL Hgb (12.0-18.0) g/dL Hct (35.0-51.0) % MCV (80.0-94.0) fL MCH (27.0-31.0) pg MCHC (33.0-37.0) g/dL RDW (11.5-14.5) % Plt Count (130-400) K/uL MPV (7.2-11.7) fL Neut % (Auto) (50.0-75.0) % Lymph % (Auto) (20.0-40.0) % [place] % (Auto) (0.0-10.0) % Eos % (Auto) (0.0-4.0) % Baso % (Auto) (0.0-2.0) % Neut # (Auto) (1.8-7.0) K/uL Lymph # (Auto) (1.0-4.3) K/uL [place] # (Auto) (0.0-0.8) K/uL Eos # (Auto) (0.0-0.7) K/uL Baso # (Auto) (0.0-0.2) K/uL Sodium (132-148) mmol/L Potassium (3.6-5.2) mmol/L Chloride (98-107) mmol/L Carbon Dioxide (22-30) mmol/L Anion Gap (10-20) BUN (9-20) mg/dL Creatinine (0.8-1.5) mg/dL Est GFR ( Amer) Est GFR (Non-Af Amer) POC Glucose (mg/dL) 146 H (65-110) mg/dL Random Glucose (75-110) mg/dL Hemoglobin A1c (4.2-6.5) % Calcium (8.6-10.4) mg/dl Phosphorus (2.5-4.5) mg/dL Magnesium (1.6-2.3) mg/dL Total Bilirubin (0.2-1.3) mg/dL AST (17-59) U/L ALT (21-72) U/L Alkaline Phosphatase (38-126) U/L Total Protein (6.3-8.3) g/dL Albumin (3.5-5.0) g/dL Globulin (2.2-3.9) gm/dL Albumin/Globulin Ratio (1.0-2.1) Laboratory Results - last 24 hr 12/17/17 12/18/17 12/18/17 21:18 06:28 06:28 WBC 7.9 RBC 3.89 L Hgb 13.0 Hct 37.1 MCV 95.5 H MCH 33.4 H MCHC 34.9 RDW 13.9 Plt Count 532 H MPV 8.8 Neut % (Auto) 45.8 L Lymph % (Auto) 41.2 H [place] % (Auto) 6.7 Eos % (Auto) 5.4 H Baso % (Auto) 0.9 Neut # (Auto) 3.6 Lymph # (Auto) 3.3 [place] # (Auto) 0.5 Eos # (Auto) 0.4 Baso # (Auto) 0.1 Sodium 145 Potassium 4.0 Chloride 104 Carbon Dioxide 29 Anion Gap 16 BUN 15 Creatinine 0.8 Est GFR ( Amer) > 60 Est GFR (Non-Af Amer) > 60 POC Glucose (mg/dL) 146 H Random Glucose 128 H Hemoglobin A1c Calcium 8.8 Phosphorus 3.8 Magnesium 1.9 Total Bilirubin 0.3 AST 20 ALT 21 D Alkaline Phosphatase 51 Total Protein 6.3 Albumin 3.6 Globulin 2.7 Albumin/Globulin Ratio 1.3 12/18/17 12/18/17 12/18/17 06:30 07:15 11:26 WBC RBC Hgb Hct MCV MCH MCHC RDW Plt Count MPV Neut % (Auto) Lymph % (Auto) [place] % (Auto) Eos % (Auto) Baso % (Auto) Neut # (Auto) Lymph # (Auto) [place] # (Auto) Eos # (Auto) Baso # (Auto) Sodium Potassium Chloride Carbon Dioxide Anion Gap BUN Creatinine Est GFR ( Amer) Est GFR (Non-Af Amer) POC Glucose (mg/dL) 149 H 186 H Random Glucose Hemoglobin A1c 5.9 Calcium Phosphorus Magnesium Total Bilirubin AST ALT Alkaline Phosphatase Total Protein Albumin Globulin Albumin/Globulin Ratio 12/18/17 16:02 WBC RBC Hgb Hct MCV MCH MCHC RDW Plt Count MPV Neut % (Auto) Lymph % (Auto) [place] % (Auto) Eos % (Auto) Baso % (Auto) Neut # (Auto) Lymph # (Auto) [place] # (Auto) Eos # (Auto) Baso # (Auto) Sodium Potassium Chloride Carbon Dioxide Anion Gap BUN Creatinine Est GFR ( Amer) Est GFR (Non-Af Amer) POC Glucose (mg/dL) 374 H Random Glucose Hemoglobin A1c Calcium Phosphorus Magnesium Total Bilirubin AST ALT Alkaline Phosphatase Total Protein Albumin Globulin Albumin/Globulin Ratio Fingerstick Blood Sugar Results: 374 Review of Systems - Review of Systems Review of Systems: As per Subjective Critical Care Progress Note - Nutrition Nutrition: Nutrition Category Date Time Status Heart Healthy Diet [DIET] Diets 12/18/17 Lunch Active Assessment/Plan - Assessment and Plan (Free Text) Assessment: 77 year old male with a PMHx of HTN, DM II, Schizoaffective disorder and Anemia who was sent by provider in [facility] due to rapid heart rate and elevated blood pressure. EKG on Admission showed Atrial Flutter. 12/18/17: S/P MASOUD with Cardioversion. Now NSR Plan: Neuro GCS: 15 Sedation: N/A Cardio Pressors: None A: Atrial Flutter, Hx of HTN ED: 4 doses of Metoprolol 5, 0.5mg digoxin IVP ONCE EKG (Adm): Atrial Flutter CXR (12/16): No Active Pulm Disease Cardiology Consulted (Dr. Haskins) Recs Appreciated ECHO (12/16): EF=45-50%, No Pulm HTN, mild sclerocalcific changes of the aortic root. Small posterior pericardial effusion. See Full Report for more details S/P MASOUD with cardioversion, Now in NSR Cont. Home ASA 81 Metoprolol 25 BID Started on Eliquis 4 BID Pulm No active issues GI No Active issues Heme/Onc A: Hx of Anemia HgB Stable Endo A: DM II Levemir 8 HS Regular ISS Psych A: Schozoaffective Disorder Depakote ER 250mg PO HS Seroquel 50mg PO HS Proph Eliquis BID No idication for GI Proph Diet: Diabetic Patient seen and discussed with ICU Attending Zenia Michael, PGY-1 <Jeffry Agrawal M - Last Filed: 12/18/17 19:53> CCU Objective - Vital Signs / Intake & Output Vital Signs (Last 4 hours): Vital Signs Temp Pulse Resp BP Pulse Ox 12/18/17 19:04 91 H 18 110/70 95 12/18/17 19:00 98 H 12 95 12/18/17 18:49 91 H 23 99/57 L 96 12/18/17 18:48 95/57 L 12/18/17 18:34 92 H 20 95/57 L 96 12/18/17 18:19 94 H 22 98/58 L 95 12/18/17 18:04 96 H 18 105/59 L 95 12/18/17 18:00 101 H 15 98 12/18/17 17:49 92 H 12 98/57 L 98 12/18/17 17:34 94 H 17 100/57 L 97 12/18/17 17:19 95 H 18 107/58 L 96 12/18/17 17:05 99 H 15 116/70 97 12/18/17 17:00 96 H 17 97 12/18/17 16:34 100 H 19 122/73 97 12/18/17 16:19 95 H 10 L 112/65 97 12/18/17 16:04 99 H 13 119/70 95 12/18/17 16:00 98.0 F 98 H 11 L 98 Intake and Output (Last 8hrs): Intake & Output 12/18/17 12/18/17 12/18/17 06:59 14:59 22:59 Intake Total 300 12.5 0 Output Total 1050 500 400 Balance -750 -487.5 -400 Weight 144 lb 4.8 oz Intake: Intake, IV Amount 12.5 0 L AC 12.5 0 Left Antecubital 0 0 Oral 300 Output: Urine 1050 500 400 Urine, Voided 1050 500 400 Other: # Voids Urine, Voided 1 1 - Medications Active Medications: Active Medications Generic Name Dose Route Start Last Admin Trade Name Freq PRN Reason Stop Dose Admin Apixaban 5 mg 12/18/17 22:00 Eliquis PO BID [facility] Aspirin 81 mg 12/17/17 10:00 12/18/17 09:33 Ecotrin PO Not Given DAILY [facility] Divalproex Sodium 250 mg 12/16/17 22:00 12/17/17 21:58 Depakote Er PO 250 mg HS [facility] Administration Famotidine 20 mg 12/17/17 18:00 12/18/17 18:57 Pepcid PO 20 mg BID [facility] Administration Insulin Detemir 8 unit 12/16/17 22:00 12/17/17 21:58 Levemir SC Not Given HS [facility] Insulin Human Regular 0 unit 12/16/17 22:00 12/18/17 16:09 Novolin R SC 5 unit ACHS [facility] Administration Protocol Metoprolol Tartrate 25 mg 12/18/17 11:47 12/18/17 18:48 Lopressor PO Not Given BID [facility] Quetiapine Fumarate 50 mg 12/16/17 22:00 12/17/17 22:01 Seroquel PO 50 mg HS [facility] Administration Rosuvastatin Calcium 5 mg 12/16/17 22:00 12/17/17 21:58 Crestor PO 5 mg HS [facility] Administration - Patient Studies Lab Studies: Microbiology Studies 12/16/17 21:54 MRSA Culture (Admit) - Final Naris MRSA NOT DETECTED Lab Studies 12/18/17 12/18/17 12/18/17 Range/Units 16:02 11:26 07:15 WBC (4.8-10.8) K/uL RBC (4.40-5.90) Mil/uL Hgb (12.0-18.0) g/dL Hct (35.0-51.0) % MCV (80.0-94.0) fL MCH (27.0-31.0) pg MCHC (33.0-37.0) g/dL RDW (11.5-14.5) % Plt Count (130-400) K/uL MPV (7.2-11.7) fL Neut % (Auto) (50.0-75.0) % Lymph % (Auto) (20.0-40.0) % [place] % (Auto) (0.0-10.0) % Eos % (Auto) (0.0-4.0) % Baso % (Auto) (0.0-2.0) % Neut # (Auto) (1.8-7.0) K/uL Lymph # (Auto) (1.0-4.3) K/uL [place] # (Auto) (0.0-0.8) K/uL Eos # (Auto) (0.0-0.7) K/uL Baso # (Auto) (0.0-0.2) K/uL Sodium (132-148) mmol/L Potassium (3.6-5.2) mmol/L Chloride (98-107) mmol/L Carbon Dioxide (22-30) mmol/L Anion Gap (10-20) BUN (9-20) mg/dL Creatinine (0.8-1.5) mg/dL Est GFR ( Amer) Est GFR (Non-Af Amer) POC Glucose (mg/dL) 374 H 186 H 149 H (65-110) mg/dL Random Glucose (75-110) mg/dL Hemoglobin A1c (4.2-6.5) % Calcium (8.6-10.4) mg/dl Phosphorus (2.5-4.5) mg/dL Magnesium (1.6-2.3) mg/dL Total Bilirubin (0.2-1.3) mg/dL AST (17-59) U/L ALT (21-72) U/L Alkaline Phosphatase (38-126) U/L Total Protein (6.3-8.3) g/dL Albumin (3.5-5.0) g/dL Globulin (2.2-3.9) gm/dL Albumin/Globulin Ratio (1.0-2.1) 12/18/17 12/18/17 12/18/17 Range/Units 06:30 06:28 06:28 WBC 7.9 (4.8-10.8) K/uL RBC 3.89 L (4.40-5.90) Mil/uL Hgb 13.0 (12.0-18.0) g/dL Hct 37.1 (35.0-51.0) % MCV 95.5 H (80.0-94.0) fL MCH 33.4 H (27.0-31.0) pg MCHC 34.9 (33.0-37.0) g/dL RDW 13.9 (11.5-14.5) % Plt Count 532 H (130-400) K/uL MPV 8.8 (7.2-11.7) fL Neut % (Auto) 45.8 L (50.0-75.0) % Lymph % (Auto) 41.2 H (20.0-40.0) % [place] % (Auto) 6.7 (0.0-10.0) % Eos % (Auto) 5.4 H (0.0-4.0) % Baso % (Auto) 0.9 (0.0-2.0) % Neut # (Auto) 3.6 (1.8-7.0) K/uL Lymph # (Auto) 3.3 (1.0-4.3) K/uL [place] # (Auto) 0.5 (0.0-0.8) K/uL Eos # (Auto) 0.4 (0.0-0.7) K/uL Baso # (Auto) 0.1 (0.0-0.2) K/uL Sodium 145 (132-148) mmol/L Potassium 4.0 (3.6-5.2) mmol/L Chloride 104 (98-107) mmol/L Carbon Dioxide 29 (22-30) mmol/L Anion Gap 16 (10-20) BUN 15 (9-20) mg/dL Creatinine 0.8 (0.8-1.5) mg/dL Est GFR ( Amer) > 60 Est GFR (Non-Af Amer) > 60 POC Glucose (mg/dL) (65-110) mg/dL Random Glucose 128 H (75-110) mg/dL Hemoglobin A1c 5.9 (4.2-6.5) % Calcium 8.8 (8.6-10.4) mg/dl Phosphorus 3.8 (2.5-4.5) mg/dL Magnesium 1.9 (1.6-2.3) mg/dL Total Bilirubin 0.3 (0.2-1.3) mg/dL AST 20 (17-59) U/L ALT 21 D (21-72) U/L Alkaline Phosphatase 51 (38-126) U/L Total Protein 6.3 (6.3-8.3) g/dL Albumin 3.6 (3.5-5.0) g/dL Globulin 2.7 (2.2-3.9) gm/dL Albumin/Globulin Ratio 1.3 (1.0-2.1) 12/17/17 Range/Units 21:18 WBC (4.8-10.8) K/uL RBC (4.40-5.90) Mil/uL Hgb (12.0-18.0) g/dL Hct (35.0-51.0) % MCV (80.0-94.0) fL MCH (27.0-31.0) pg MCHC (33.0-37.0) g/dL RDW (11.5-14.5) % Plt Count (130-400) K/uL MPV (7.2-11.7) fL Neut % (Auto) (50.0-75.0) % Lymph % (Auto) (20.0-40.0) % [place] % (Auto) (0.0-10.0) % Eos % (Auto) (0.0-4.0) % Baso % (Auto) (0.0-2.0) % Neut # (Auto) (1.8-7.0) K/uL Lymph # (Auto) (1.0-4.3) K/uL [place] # (Auto) (0.0-0.8) K/uL Eos # (Auto) (0.0-0.7) K/uL Baso # (Auto) (0.0-0.2) K/uL Sodium (132-148) mmol/L Potassium (3.6-5.2) mmol/L Chloride (98-107) mmol/L Carbon Dioxide (22-30) mmol/L Anion Gap (10-20) BUN (9-20) mg/dL Creatinine (0.8-1.5) mg/dL Est GFR ( Amer) Est GFR (Non-Af Amer) POC Glucose (mg/dL) 146 H (65-110) mg/dL Random Glucose (75-110) mg/dL Hemoglobin A1c (4.2-6.5) % Calcium (8.6-10.4) mg/dl Phosphorus (2.5-4.5) mg/dL Magnesium (1.6-2.3) mg/dL Total Bilirubin (0.2-1.3) mg/dL AST (17-59) U/L ALT (21-72) U/L Alkaline Phosphatase (38-126) U/L Total Protein (6.3-8.3) g/dL Albumin (3.5-5.0) g/dL Globulin (2.2-3.9) gm/dL Albumin/Globulin Ratio (1.0-2.1) Laboratory Results - last 24 hr 12/17/17 12/18/17 12/18/17 21:18 06:28 06:28 WBC 7.9 RBC 3.89 L Hgb 13.0 Hct 37.1 MCV 95.5 H MCH 33.4 H MCHC 34.9 RDW 13.9 Plt Count 532 H MPV 8.8 Neut % (Auto) 45.8 L Lymph % (Auto) 41.2 H [place] % (Auto) 6.7 Eos % (Auto) 5.4 H Baso % (Auto) 0.9 Neut # (Auto) 3.6 Lymph # (Auto) 3.3 [place] # (Auto) 0.5 Eos # (Auto) 0.4 Baso # (Auto) 0.1 Sodium 145 Potassium 4.0 Chloride 104 Carbon Dioxide 29 Anion Gap 16 BUN 15 Creatinine 0.8 Est GFR ( Amer) > 60 Est GFR (Non-Af Amer) > 60 POC Glucose (mg/dL) 146 H Random Glucose 128 H Hemoglobin A1c Calcium 8.8 Phosphorus 3.8 Magnesium 1.9 Total Bilirubin 0.3 AST 20 ALT 21 D Alkaline Phosphatase 51 Total Protein 6.3 Albumin 3.6 Globulin 2.7 Albumin/Globulin Ratio 1.3 12/18/17 12/18/17 12/18/17 06:30 07:15 11:26 WBC RBC Hgb Hct MCV MCH MCHC RDW Plt Count MPV Neut % (Auto) Lymph % (Auto) [place] % (Auto) Eos % (Auto) Baso % (Auto) Neut # (Auto) Lymph # (Auto) [place] # (Auto) Eos # (Auto) Baso # (Auto) Sodium Potassium Chloride Carbon Dioxide Anion Gap BUN Creatinine Est GFR ( Amer) Est GFR (Non-Af Amer) POC Glucose (mg/dL) 149 H 186 H Random Glucose Hemoglobin A1c 5.9 Calcium Phosphorus Magnesium Total Bilirubin AST ALT Alkaline Phosphatase Total Protein Albumin Globulin Albumin/Globulin Ratio 12/18/17 16:02 WBC RBC Hgb Hct MCV MCH MCHC RDW Plt Count MPV Neut % (Auto) Lymph % (Auto) [place] % (Auto) Eos % (Auto) Baso % (Auto) Neut # (Auto) Lymph # (Auto) [place] # (Auto) Eos # (Auto) Baso # (Auto) Sodium Potassium Chloride Carbon Dioxide Anion Gap BUN Creatinine Est GFR ( Amer) Est GFR (Non-Af Amer) POC Glucose (mg/dL) 374 H Random Glucose Hemoglobin A1c Calcium Phosphorus Magnesium Total Bilirubin AST ALT Alkaline Phosphatase Total Protein Albumin Globulin Albumin/Globulin Ratio Critical Care Progress Note - Nutrition Nutrition: Nutrition Category Date Time Status Heart Healthy Diet [DIET] Diets 12/18/17 Lunch Active Attending/Attestation - Attestation I have personally seen and examined this patient.: Yes I have fully participated in the care of the patient.: Yes I have reviewed all pertinent clinical information: Yes Notes (Text): 12/18/17 19:53 Today: November The Patient was seen and examined at the bedside, Medical records reviewed, and management issues were discussed and formulated with the house staff. I have reviewed all the relevant clinical, laboratory, hemodynamic, radiographic data and medications Events reviewed Pain issues, skin care, head of the bed elevation, glycemic control were addressed. Agree with above resident's assessment and treatment plans of care as transcribed in Dr. Menchaca note.
[2017-12-18] MEDS: Insulin Detemir 100 units/ml Vial (Levemir) SC SCH (21:48)
[2017-12-19 06:18] LABS: BASO # 0.1 K/uL (0.0-0.2); BASO % 0.7 % (0.0-2.0); EOS # 0.5 K/uL (0.0-0.7); EOS % 5.9 % (0.0-4.0); LYMPH # 3.3 K/uL (1.0-4.3); LYMPH % 36.2 % (20.0-40.0); MEAN CELL VOLUME 96.4 fL (80.0-94.0); MEAN CORPUSCULAR HEMOGLOBIN 32.9 pg (27.0-31.0); MEAN CORPUSCULAR HGB CONC 34.1 g/dL (33.0-37.0); MEAN PLATELET VOLUME 8.5 fL (7.2-11.7); MONO # 0.6 K/uL (0.0-0.8); MONO % 7.1 % (0.0-10.0); NEUT # 4.5 K/uL (1.8-7.0); NEUT % 50.1 % (50.0-75.0); RBC 3.63 Mil/uL (4.40-5.90); RED CELL DISTRIBUTION WIDTH 13.8 % (11.5-14.5)
[2017-12-19 06:21] LABS: INR 1.2; PROTHROMBIN TIME 13.1 SECONDS (9.7-12.2)
[2017-12-19 06:40] LABS: ALB/GLOB RATIO 1.3 (1.0-2.1); ALBUMIN 3.2 g/dL (3.5-5.0); ALT/SGPT 29 U/L (21-72); AST/SGOT 17 U/L (17-59); BLOOD UREA NITROGEN 17 mg/dL (9-20); CALCIUM 7.9 mg/dl (8.6-10.4); GFR AFRICAN-AMERICAN > 60; GFR NON-AFRICAN AMERICAN > 60
[2017-12-19] MEDS: (Novolin R) Insulin Human Regular 100 units/ml vial SC SCH ×2 (08:05→12:29)
--- NOTE | 2017-12-19 08:38 | CP.PCM.PN ---
Subjective - Date & Time of Evaluation Date of Evaluation: 12/19/17 Time of Evaluation: 08:30 - Subjective Subjective: no new complaints. remains in sinus rhythm Objective - Vital Signs/Intake and Output Vital Signs (last 24 hours): Temp Pulse Resp BP Pulse Ox 97.9 F 73 14 111/57 L 96 12/19/17 04:00 12/19/17 07:00 12/19/17 07:00 12/19/17 07:00 12/19/17 07:00 Intake and Output: 12/19/17 12/19/17 06:59 18:59 Intake Total 300 Output Total 400 Balance -100 - Medications Medications: Current Medications Apixaban (Eliquis) 5 mg PO BID [facility] Last Admin: 12/18/17 21:48 Dose: 5 mg Aspirin (Ecotrin) 81 mg PO DAILY [facility] Last Admin: 12/18/17 09:33 Dose: Not Given Divalproex Sodium (Depakote Er) 250 mg PO [facility] Last Admin: 12/18/17 21:48 Dose: 250 mg Famotidine (Pepcid) 20 mg PO BID [facility] Last Admin: 12/18/17 18:57 Dose: 20 mg Insulin Detemir (Levemir) 8 unit SC [facility] Last Admin: 12/18/17 21:48 Dose: 8 unit Insulin Human Regular (Novolin R) 0 unit SC [facility] PRN Reason: Protocol Last Admin: 12/19/17 08:05 Dose: 1 unit Metoprolol Tartrate (Lopressor) 25 mg PO BID [facility] Last Admin: 12/18/17 18:48 Dose: Not Given Quetiapine Fumarate (Seroquel) 50 mg PO [facility] Last Admin: 12/18/17 21:48 Dose: 50 mg Rosuvastatin Calcium (Crestor) 5 mg PO [facility] Last Admin: 12/18/17 21:48 Dose: 5 mg - Labs Labs: 12/19/17 05:53 12/19/17 05:55 PT 13.1 SECONDS (9.7-12.2) H 12/19/17 05:53 INR 1.2 12/19/17 05:53 APTT 34 SECONDS (21-34) 12/19/17 05:53 - Constitutional Appears: Non-toxic - Head Exam Head Exam: NORMAL INSPECTION - Eye Exam Eye Exam: Normal appearance - ENT Exam ENT Exam: Mucous Membranes Moist - Neck Exam Neck Exam: Full ROM - Respiratory Exam Respiratory Exam: NORMAL BREATHING PATTERN - Cardiovascular Exam Cardiovascular Exam: REGULAR RHYTHM - GI/Abdominal Exam GI & Abdominal Exam: Normal Bowel Sounds - Rectal Exam Rectal Exam: Deferred - Extremities Exam Extremities Exam: absent: Pedal Edema - Back Exam Back Exam: NORMAL INSPECTION - Neurological Exam Neurological Exam: Alert - Psychiatric Exam Psychiatric exam: Normal Affect - Skin Skin Exam: Normal Color Assessment and Plan (1) Atrial flutter Assessment & Plan: s/p cardioversion. can d/c home toda. continue Eliquis. outpatient follow up Status: Acute
--- NOTE | 2017-12-19 09:11 | CP.PCM.DIS ---
Provider - Provider Date of Admission: 12/16/17 16:49 Attending physician: Sheila Barlow, DO Hospital Course - Lab Results Lab Results: Micro Results 12/16/17 21:54 Naris MRSA Culture (Admit) - Final MRSA NOT DETECTED Most Recent Lab Values WBC 9.0 K/uL (4.8-10.8) 12/19/17 05:53 RBC 3.63 Mil/uL (4.40-5.90) L 12/19/17 05:53 Hgb 12.0 g/dL (12.0-18.0) 12/19/17 05:53 Hct 35.0 % (35.0-51.0) 12/19/17 05:53 MCV 96.4 fL (80.0-94.0) H 12/19/17 05:53 MCH 32.9 pg (27.0-31.0) H 12/19/17 05:53 MCHC 34.1 g/dL (33.0-37.0) 12/19/17 05:53 RDW 13.8 % (11.5-14.5) 12/19/17 05:53 Plt Count 523 K/uL (130-400) H 12/19/17 05:53 MPV 8.5 fL (7.2-11.7) 12/19/17 05:53 Neut % (Auto) 50.1 % (50.0-75.0) 12/19/17 05:53 Lymph % (Auto) 36.2 % (20.0-40.0) 12/19/17 05:53 [place] % (Auto) 7.1 % (0.0-10.0) 12/19/17 05:53 Eos % (Auto) 5.9 % (0.0-4.0) H 12/19/17 05:53 Baso % (Auto) 0.7 % (0.0-2.0) 12/19/17 05:53 Neut # (Auto) 4.5 K/uL (1.8-7.0) 12/19/17 05:53 Lymph # (Auto) 3.3 K/uL (1.0-4.3) 12/19/17 05:53 [place] # (Auto) 0.6 K/uL (0.0-0.8) 12/19/17 05:53 Eos # (Auto) 0.5 K/uL (0.0-0.7) 12/19/17 05:53 Baso # (Auto) 0.1 K/uL (0.0-0.2) 12/19/17 05:53 PT 13.1 SECONDS (9.7-12.2) H 12/19/17 05:53 INR 1.2 12/19/17 05:53 APTT 34 SECONDS (21-34) 12/19/17 05:53 D-Dimer, Quantitative < 200 ng/mlDDU (0-243) 12/16/17 21:54 Sodium 140 mmol/L (132-148) 12/19/17 05:55 Potassium 4.0 mmol/L (3.6-5.2) 12/19/17 05:55 Chloride 106 mmol/L (98-107) 12/19/17 05:55 Carbon Dioxide 23 mmol/L (22-30) 12/19/17 05:55 Anion Gap 14 (10-20) 12/19/17 05:55 BUN 17 mg/dL (9-20) 12/19/17 05:55 Creatinine 0.6 mg/dL (0.8-1.5) L 12/19/17 05:55 Est GFR ( Amer) > 60 12/19/17 05:55 Est GFR (Non-Af Amer) > 60 12/19/17 05:55 POC Glucose (mg/dL) 153 mg/dL (65-110) H 12/19/17 07:27 Random Glucose 135 mg/dL (75-110) H 12/19/17 05:55 Hemoglobin A1c 5.9 % (4.2-6.5) 12/18/17 06:30 Calcium 7.9 mg/dl (8.6-10.4) L 12/19/17 05:55 Phosphorus 3.5 mg/dL (2.5-4.5) 12/19/17 05:55 Magnesium 1.7 mg/dL (1.6-2.3) 12/19/17 05:55 Total Bilirubin 0.4 mg/dL (0.2-1.3) 12/19/17 05:55 AST 17 U/L (17-59) 12/19/17 05:55 ALT 29 U/L (21-72) 12/19/17 05:55 Alkaline Phosphatase 47 U/L (38-126) 12/19/17 05:55 Total Creatine Kinase < 20 U/L (55-170) L 12/17/17 06:01 CK-MB (Mass) 0.36 ng/mL (0.0-3.38) 12/17/17 06:01 Troponin I < 0.0120 ng/mL (0.00-0.120) 12/17/17 06:01 NT-Pro-B Natriuret Pep 444 pg/mL (0-900) 12/16/17 14:04 Total Protein 5.6 g/dL (6.3-8.3) L 12/19/17 05:55 Albumin 3.2 g/dL (3.5-5.0) L 12/19/17 05:55 Globulin 2.5 gm/dL (2.2-3.9) 12/19/17 05:55 Albumin/Globulin Ratio 1.3 (1.0-2.1) 12/19/17 05:55 Triglycerides 61 mg/dL (0-149) 12/17/17 06:01 Cholesterol 125 mg/dL (0-199) 12/17/17 06:01 LDL Cholesterol Direct 70 mg/dL (0-129) 12/17/17 06:01 HDL Cholesterol 36 mg/dL (30-70) 12/17/17 06:01 Thyroxine (T4) 7.67 ug/dL (5.5-11.0) 12/16/17 14:04 T3 Uptake 35.5 % (23.0-41.0) 12/16/17 14:04 TSH 3rd Generation 6.28 mIU/L (0.46-4.68) H 12/17/17 06:01 Discharge Exam - Head Exam Head Exam: NORMAL INSPECTION Discharge Plan - Discharge Medications Prescriptions: Apixaban [Eliquis] 5 mg PO BID #60 tab Metoprolol Tartrate [Lopressor] 50 mg PO BID #60 tab - Follow Up Plan Condition: FAIR Disposition: HOME/ ROUTINE
--- NOTE | 2017-12-19 09:50 | CP.PCM.DIS ---
Provider - Provider Date of Admission: 12/16/17 16:49 Attending physician: Sheila Barlow DO Primary care physician: Chay keita Consults: Dr. Haskins Time Spent in preparation of Discharge (in minutes): 31 Diagnosis - Discharge Diagnosis (1) Atrial flutter Status: Resolved (2) Hypertension Status: Chronic (3) Diabetes Status: Chronic (4) Schizoaffective disorder Status: Chronic (5) Skin cancer Status: Chronic (6) Prophylactic measure Status: Acute Hospital Course - Lab Results Lab Results: Micro Results 12/16/17 21:54 Naris MRSA Culture (Admit) - Final MRSA NOT DETECTED Most Recent Lab Values WBC 9.0 K/uL (4.8-10.8) 12/19/17 05:53 RBC 3.63 Mil/uL (4.40-5.90) L 12/19/17 05:53 Hgb 12.0 g/dL (12.0-18.0) 12/19/17 05:53 Hct 35.0 % (35.0-51.0) 12/19/17 05:53 MCV 96.4 fL (80.0-94.0) H 12/19/17 05:53 MCH 32.9 pg (27.0-31.0) H 12/19/17 05:53 MCHC 34.1 g/dL (33.0-37.0) 12/19/17 05:53 RDW 13.8 % (11.5-14.5) 12/19/17 05:53 Plt Count 523 K/uL (130-400) H 12/19/17 05:53 MPV 8.5 fL (7.2-11.7) 12/19/17 05:53 Neut % (Auto) 50.1 % (50.0-75.0) 12/19/17 05:53 Lymph % (Auto) 36.2 % (20.0-40.0) 12/19/17 05:53 [place] % (Auto) 7.1 % (0.0-10.0) 12/19/17 05:53 Eos % (Auto) 5.9 % (0.0-4.0) H 12/19/17 05:53 Baso % (Auto) 0.7 % (0.0-2.0) 12/19/17 05:53 Neut # (Auto) 4.5 K/uL (1.8-7.0) 12/19/17 05:53 Lymph # (Auto) 3.3 K/uL (1.0-4.3) 12/19/17 05:53 [place] # (Auto) 0.6 K/uL (0.0-0.8) 12/19/17 05:53 Eos # (Auto) 0.5 K/uL (0.0-0.7) 12/19/17 05:53 Baso # (Auto) 0.1 K/uL (0.0-0.2) 12/19/17 05:53 PT 13.1 SECONDS (9.7-12.2) H 12/19/17 05:53 INR 1.2 12/19/17 05:53 APTT 34 SECONDS (21-34) 12/19/17 05:53 D-Dimer, Quantitative < 200 ng/mlDDU (0-243) 12/16/17 21:54 Sodium 140 mmol/L (132-148) 12/19/17 05:55 Potassium 4.0 mmol/L (3.6-5.2) 12/19/17 05:55 Chloride 106 mmol/L (98-107) 12/19/17 05:55 Carbon Dioxide 23 mmol/L (22-30) 12/19/17 05:55 Anion Gap 14 (10-20) 12/19/17 05:55 BUN 17 mg/dL (9-20) 12/19/17 05:55 Creatinine 0.6 mg/dL (0.8-1.5) L 12/19/17 05:55 Est GFR ( Amer) > 60 12/19/17 05:55 Est GFR (Non-Af Amer) > 60 12/19/17 05:55 POC Glucose (mg/dL) 153 mg/dL (65-110) H 12/19/17 07:27 Random Glucose 135 mg/dL (75-110) H 12/19/17 05:55 Hemoglobin A1c 5.9 % (4.2-6.5) 12/18/17 06:30 Calcium 7.9 mg/dl (8.6-10.4) L 12/19/17 05:55 Phosphorus 3.5 mg/dL (2.5-4.5) 12/19/17 05:55 Magnesium 1.7 mg/dL (1.6-2.3) 12/19/17 05:55 Total Bilirubin 0.4 mg/dL (0.2-1.3) 12/19/17 05:55 AST 17 U/L (17-59) 12/19/17 05:55 ALT 29 U/L (21-72) 12/19/17 05:55 Alkaline Phosphatase 47 U/L (38-126) 12/19/17 05:55 Total Creatine Kinase < 20 U/L (55-170) L 12/17/17 06:01 CK-MB (Mass) 0.36 ng/mL (0.0-3.38) 12/17/17 06:01 Troponin I < 0.0120 ng/mL (0.00-0.120) 12/17/17 06:01 NT-Pro-B Natriuret Pep 444 pg/mL (0-900) 12/16/17 14:04 Total Protein 5.6 g/dL (6.3-8.3) L 12/19/17 05:55 Albumin 3.2 g/dL (3.5-5.0) L 12/19/17 05:55 Globulin 2.5 gm/dL (2.2-3.9) 12/19/17 05:55 Albumin/Globulin Ratio 1.3 (1.0-2.1) 12/19/17 05:55 Triglycerides 61 mg/dL (0-149) 12/17/17 06:01 Cholesterol 125 mg/dL (0-199) 12/17/17 06:01 LDL Cholesterol Direct 70 mg/dL (0-129) 12/17/17 06:01 HDL Cholesterol 36 mg/dL (30-70) 12/17/17 06:01 Thyroxine (T4) 7.67 ug/dL (5.5-11.0) 12/16/17 14:04 T3 Uptake 35.5 % (23.0-41.0) 12/16/17 14:04 TSH 3rd Generation 6.28 mIU/L (0.46-4.68) H 12/17/17 06:01 - Hospital Course Hospital Course: At time of admission: Patient was at his regular checkup at the [place] [facility], which he was told by the doctor he had a very high heart rate and high blood pressure and recommended to go to the emergency room. Patient denies feeling any symptoms. Patient denies lightheaded, denies dyspnea on exertion, denies chest pain, denies feeling any palpitations. Patient reports he is ambulatory, denies any falls/trips, denies alcohol use, denies history of known thyroid disorder, and reports he takes his medication every day except for today. Patient denies recent surgery, denies long trips, denies any weight loss/gain. In the ED, patient was given Lopressor 5mg IV, Digoxin 0.5mg IVX1 and heart rate when patient is brought to ICU. Patient is asymptomatic and understands he is here because of his high rate and blood pressure. Hospitalization Workup below: 1) Atrial Flutter-->Controlled * Cardiology Consulted (Dr. Haskins) Recs Appreciated * Echocardiogram (12/17/17): appears in rapid afib. * Left ventricle is normal size normal left ventricular wall thcikness. ejection fraction: 45-50%, left atrial pressure is moderate elevated, systolic function is mildly reduced. left atrium is mildy dilated, aortic valve is trileaflet, aortic valve is mildly calcified, mitral regurgitation is mild, mild tricupid regurgitation, right ventricular systolic pressure ~ 25mmgHg, no pulmonary hypertension, aortic root is normal size, aortic root displays mild sclerocalcific changes of the aortic root. small posterior pericardial effusion is noted. * Patient underwent MASOUD and cardioversion 12/18, required one shock remains in sinus. Discussed with cardiology, recommend for a beta dianne and anticoagulant. * Patient stable from cardio standpoint for discharge today * EKG (Adm): Atrial Flutter * CXR (12/16): No Active Pulm Disease * Eliquis 5mg PO BID * Aspirin 81mg PO daily * Lopressor 50mg PO bid * BRAULIO X3 negative * D-Dimer: negative 2) Hx of Hypertension-->chronic * Lopressor 50mg PO bid 3) Hx of Diabetes (controlled) * Levemir 8 HS * Regular ISS * Accuchecks QAC and HS * a1c: 5.9 * lipid panel : T, cholestrol: 125, LDL: 70, HDL: 36 * Home medication: Janumet, nateglinidie, Humalog at lunch, and lantus evening 4) History of lipid disorder-->chronic * lipid panel : T, cholestrol: 125, LDL: 70, HDL: 36 * Home medication: omega 3 Fa, statin 5) Hx of Schizoaffective Disorder-->chronic * Depakote ER 250mg PO HS * Seroquel 50mg PO HS 6) Vitamin D Deficiency-->chronic * check vitamin D 7) Hx of Anemia * HgB Normal, MCV normal 8) History of known skin cancer-->chronic * Patient denies melanoma history and has had skin removals in the past 9) Prophylaxis * Eliquis 5mg PO BID * Pepcid 20mg PO BID * Diet: Diabetic heart healthy diet - Date & Time of H&P Date of H&P: 12/16/17 Time of H&P: 19:16 Discharge Exam - Head Exam Head Exam: NORMAL INSPECTION - Eye Exam Eye Exam: EOMI - ENT Exam ENT Exam: Mucous Membranes Moist - Respiratory Exam Respiratory Exam: Clear to PA & Lateral, NORMAL BREATHING PATTERN. absent: Rales, Rhonchi - Cardiovascular Exam Cardiovascular Exam: REGULAR RHYTHM, +S1, +S2 - GI/Abdominal Exam GI & Abdominal Exam: Normal Bowel Sounds, Soft. absent: Distended, Firm, Guarding, Rebound, Rigid, Tenderness - Extremities Exam Extremities exam: pedal pulses present - Neurological Exam Neurological exam: Alert, CN II-XII Intact, Oriented x3 - Psychiatric Exam Psychiatric exam: Normal Affect, Normal Mood - Skin Skin Exam: Dry, Intact, Normal Color, Warm Discharge Plan - Discharge Medications Prescriptions: Apixaban [Eliquis] 5 mg PO BID #60 tab Metoprolol Tartrate [Lopressor] 50 mg PO BID #60 tab - Follow Up Plan Condition: STABLE Disposition: HOME/ ROUTINE Patient education suggested?: Yes Referrals: Lon Haskins MD [Staff Provider] - 2 Weeks (f/u in the office for refill for Eliquis and Metoprolol) Attending/Attestation - Attestation I have personally seen and examined this patient.: Yes I have fully participated in the care of the patient.: Yes I have reviewed all pertinent clinical information, including history, physical exam and plan: Yes Notes (Text): Patient seen, examined and case discussed with cardiology. Stable from cardiology standpoint for discharge. Patient to follow-up with Dr. Haskins in 2 weeks. Patient to discharge on two new prescriptions: 1) Lopressor 50mg PO BID (60 tabs) and Eliquis 5mg PO BID (60/0). Patient advised about bleeding risk associated with Eliquis. Patient has existing follow-up appointment with his PMD at [facility]. This is a summary of patient's hospitalization. Please see EMR for entire medical record.
[2017-12-19 12:48] VITALS: RESP 15
[2017-12-19 15:34] VITALS: BP 97/54; PULSE 78; TEMP 98.2; O2SAT 98
== END 2017-12-19 13:30 | disposition home or self-care (01) | DRG 310 ==
LOC: C.ER 12:08 → C.9I 16:49 → C.9E 16:49
PROVIDERS: ADMIT Hospitalist; ATTEND Hospitalist
PROC: 5A2204Z Restoration of Cardiac Rhythm, Single (ICD-10-PCS; principal; 2017-12-18)
DX: I48.92 Unspecified atrial flutter (principal); E11.9 Type 2 diabetes mellitus without complications; E55.9 Vitamin D deficiency, unspecified; E78.00 Pure hypercholesterolemia, unspecified; E78.5 Hyperlipidemia, unspecified; F25.9 Schizoaffective disorder, unspecified; I10 Essential (primary) hypertension; I34.0 Nonrheumatic mitral (valve) insufficiency; Z79.82 Long term (current) use of aspirin; Z79.899 Other long term (current) drug therapy; Z85.828 Personal history of other malignant neoplasm of skin; Z87.891 Personal history of nicotine dependence

== ENCOUNTER 2018-03-10 21:42 | Emergency (ER) | payer MEDICARE, MEDICAID ==
[2018-03-10 21:42] VITALS: PULSE 144
[2018-03-10] MEDS ORDERED: Sodium Chloride 0.9% 1,000 ML IV ONE (22:23)
--- NOTE | 2018-03-10 22:23 | C.PDOC ---
History Of Present Illness Patient presents to the ER with a complaint of hematuria, dysuria, and increased frequency. Patient was recently treated for a UTI 2 weeks ago. Patient is able to tolerate PO; denies fever, chills, nausea, or vomiting. Time Seen by Provider: 03/10/18 22:22 Chief Complaint (Nursing): Male Genitourinary History Per: Patient History/Exam Limitations: no limitations Onset/Duration Of Symptoms: Days Current Symptoms Are (Timing): Still Present Severity: Moderate Pain Scale Rating Of: 4 Quality Of Discomfort: Burning Associated Symptoms: Urinary Symptoms (Hematuria, dysuria, frequency). denies: Fever, Chills, Nausea, Vomiting Alleviating Factors: None Recent travel outside of the [place]: No Past Medical History Reviewed: Historical Data, Nursing Documentation, Vital Signs Vital Signs: Last Vital Signs Temp 97.9 F 03/11/18 03:18 Pulse 74 03/11/18 03:18 Resp 20 03/11/18 03:18 BP 116/71 03/11/18 03:18 Pulse Ox 98 03/11/18 03:18 - Medical History PMH: Anemia, Depression, Diabetes, HTN, Hypercholesterolemia, Hyperlipidemia, Malignancy (basal cell carcinoma s/p multiple excisions), Schizophrenia Denies: Chronic Kidney Disease - [facility] Procedures BAPTISM OF CARDIAC RHYTHM, SINGLE (12/16/17) Family History: States: No Known Family Hx - Social History Hx Tobacco Use: No Hx Alcohol Use: No Hx Substance Use: No - Immunization History Hx Tetanus Toxoid Vaccination: No Hx Influenza Vaccination: No Hx Pneumococcal Vaccination: No Review Of Systems Constitutional: Negative for: Fever, Chills Cardiovascular: Negative for: Chest Pain, Palpitations Respiratory: Negative for: Cough, Shortness of Breath Gastrointestinal: Negative for: Nausea, Vomiting Genitourinary: Positive for: Dysuria, Frequency, Hematuria Physical Exam - Physical Exam Appears: Non-toxic Skin: Warm, Dry Head: Normacephalic Oral Mucosa: Moist Chest: Symmetrical, No Tenderness Cardiovascular: Rhythm Regular Respiratory: No Rales, No Rhonchi, No Wheezing Gastrointestinal/Abdominal: Soft, No Tenderness Neurological/Psych: Oriented x3 ED Course And Treatment - Laboratory Results Result Diagrams: 03/10/18 22:23 03/10/18 23:30 O2 Sat by Pulse Oximetry: 95 (Room air) Pulse Ox Interpretation: Normal Progress Note: Blood work and urinalysis ordered. IV fluids administered. Reevaluation Time: 05:18 Reassessment Condition: Improved Disposition Counseled Patient/Family Regarding: Studies Performed, Diagnosis, Need For Followup, Rx Given - Disposition Referrals: Fabricio Cain MD [Non-Staff] - Disposition: HOME/ ROUTINE Disposition Time: 22:23 Condition: FAIR Additional Instructions: Please return if symptoms recur Prescriptions: Ciprofloxacin [Cipro] 1 tab PO BID #20 tab Phenazopyridine HCl [Pyridium] 200 mg PO TID #6 tablet Instructions: Urinary Tract Infection, Adult (DC) Forms: [employer] ([place] Islander) Print Language: CITIZ[place] - Clinical Impression Clinical Impression: UTI (urinary tract infection) - Scribe Statement The provider has reviewed the documentation as recorded by the Scribamy Santiago All medical record entries made by the Scribe were at my direction and personally dictated by me. I have reviewed the chart and agree that the record accurately reflects my personal performance of the history, physical exam, medical decision making, and the department course for this patient. I have also personally directed, reviewed, and agree with the discharge instructions and disposition.
[2018-03-10 23:11] LABS: INR 1.2; PROTHROMBIN TIME 12.6 SECONDS (9.7-12.2)
[2018-03-10 23:17] LABS: URINE BILIRUBIN NEGATIVE (NEGATIVE); URINE BLOOD 3+ (NEGATIVE); URINE CLARITY Hazy (Clear); URINE GLUCOSE (UA) NORMAL (Normal); URINE LEUKOCYTE ESTERASE 3+ Leu/uL (Negative); URINE PROTEIN 2+ mg/dL (NEGATIVE); URINE UROBILINOGEN NORMAL mg/dL (0.2-1.0)
[2018-03-11] MEDS ORDERED: Piperacillin/Tazobact 3.375 gm 100 ML IVPB ONE (00:28)
[2018-03-11 00:37] LABS: URINE COLOR YELLOW (YELLOW)
[2018-03-11 00:39] LABS: BASO # 0.1 K/uL (0.0-0.2); BASO % 0.7 % (0.0-2.0); EOS # 0.3 K/uL (0.0-0.7); HEMOGLOBIN 12.1 g/dL (12.0-18.0); LYMPH # 3.9 K/uL (1.0-4.3); LYMPH % 26.1 % (20.0-40.0); MEAN CELL VOLUME 92.5 fL (80.0-94.0); MEAN CORPUSCULAR HGB CONC 34.6 g/dL (33.0-37.0); MEAN PLATELET VOLUME 7.8 fL (7.2-11.7); NEUT # 9.6 K/uL (1.8-7.0); NEUT % 64.2 % (50.0-75.0); NRBC % 0.1 % (0.0-2.0); RBC 3.78 Mil/uL (4.40-5.90); RED CELL DISTRIBUTION WIDTH 15.8 % (11.5-14.5); WHITE BLOOD COUNT 14.9 K/uL (4.8-10.8)
[2018-03-11] MEDS ORDERED: Ciprofloxacin 400mg/200ml D5W 400 MG/200 ML BAG IVPB STA (00:44)
[2018-03-11] MEDS ORDERED: Ciprofloxacin 400mg/200ml D5W 400 MG/200 ML BAG IVPB ONE (00:50)
[2018-03-11 01:33] LABS: ALB/GLOB RATIO 1.6 (1.0-2.1); ALBUMIN 4.1 g/dL (3.5-5.0); ALT/SGPT 24 U/L (21-72); AST/SGOT 27 U/L (17-59); BLOOD UREA NITROGEN 22 mg/dL (9-20); CALCIUM 9.3 mg/dl (8.6-10.4); GFR AFRICAN-AMERICAN > 60; GFR NON-AFRICAN AMERICAN > 60; LIPASE 103 U/L (23-300)
[2018-03-11 03:19] VITALS: PULSE 74
[2018-03-11 06:06] VITALS: BP 104/63; RESP 18; TEMP 98.5; O2SAT 97
== END 2018-03-11 06:15 | disposition home or self-care (01) ==
LOC: C.ER 21:42
DX: N39.0 Urinary tract infection, site not specified (principal); E11.9 Type 2 diabetes mellitus without complications; E78.00 Pure hypercholesterolemia, unspecified; F20.9 Schizophrenia, unspecified; I10 Essential (primary) hypertension; E78.5 Hyperlipidemia, unspecified
CPT/HCPCS: 80053; 81001; 83690; 85025; 85610; 85730; 87086; 96365; 99285; J0744; J7030

== ENCOUNTER 2018-03-12 17:04 | Emergency (ER) | payer MEDICARE, MEDICAID ==
[2018-03-12 17:04] VITALS: PULSE 144
[2018-03-12 17:17] VITALS: BMI 25.0
[2018-03-12 17:22] VITALS: TEMP 98.3
--- NOTE | 2018-03-12 18:21 | C.PDOC ---
History Of Present Illness 77 y/o male brought to ER by EMS for evaluation of bleeding from IV site in right antecubital fossa after he was discharge in the morning from the ER. Patient states that EMS applied pressure and the bleeding stopped. Patient is currently asymptomatic. Time Seen by Provider: 03/12/18 17:37 Chief Complaint (Nursing): Abnormal Skin Integrity History Per: Patient History/Exam Limitations: no limitations Onset/Duration Of Symptoms: Hrs Current Symptoms Are (Timing): Gone Severity: Moderate Past Medical History Reviewed: Historical Data, Nursing Documentation, Vital Signs Vital Signs: Last Vital Signs Temp 98.3 F 03/12/18 17:17 Pulse 85 03/12/18 19:33 Resp 14 03/12/18 19:33 BP 145/70 03/12/18 19:33 Pulse Ox 100 03/12/18 19:33 - Medical History PMH: Anemia, Depression, Diabetes, HTN, Hypercholesterolemia, Hyperlipidemia, Malignancy (basal cell carcinoma s/p multiple excisions), Schizophrenia Denies: Chronic Kidney Disease Surgical History: No Surg Hx - [facility] Procedures BUDDHISM OF CARDIAC RHYTHM, SINGLE (12/16/17) Family History: States: No Known Family Hx - Social History Hx Tobacco Use: No Hx Alcohol Use: No Hx Substance Use: No - Immunization History Hx Tetanus Toxoid Vaccination: No Hx Influenza Vaccination: No Hx Pneumococcal Vaccination: No Review Of Systems Except As Marked, All Systems Reviewed And Found Negative. Constitutional: Negative for: Fever, Chills Physical Exam - Physical Exam Appears: Non-toxic, No Acute Distress Skin: Normal Color, Warm, Dry, Ecchymosis (small area of ecchymosis to the right antecubital fossa with no active bleeding) Head: Atraumatic, Normacephalic Eye(s): bilateral: Normal Inspection Nose: Normal Oral Mucosa: Moist Neck: Supple Chest: Symmetrical Cardiovascular: Rhythm Regular Respiratory: Normal Breath Sounds, No Rales, No Rhonchi, No Wheezing Neurological/Psych: Oriented x3, Normal Speech ED Course And Treatment - Laboratory Results Result Diagrams: 03/12/18 18:27 O2 Sat by Pulse Oximetry: 98 (RA) Pulse Ox Interpretation: Normal Medical Decision Making Medical Decision Making: Plan: --Labs Hgb done and was 11.8. Patient with no complaints. No active bleeding to R AC. Stable for discharge home. Results and plan discussed with patient, who verbalized understanding. Disposition - Disposition Disposition: HOME/ ROUTINE Disposition Time: 19:34 Condition: GOOD Additional Instructions: RACHEAL MAEREZA, thank you for letting us take care of you today. Your provider was Michelle Ocampo MD and you were treated for RT ARM BLEEDING. The emergency medical care you received today was directed at your acute symptoms. If you were prescribed any medication, please fill it and take as directed. It may take several days for your symptoms to resolve. Return to the Emergency Department if your symptoms worsen, do not improve, or if you have any other problems. Please contact your doctor or call one of the physicians/clinics you have been referred to that are listed on the Patient Visit Information form that is included in your discharge packet. Bring any paperwork you were given at discharge with you along with any medications you are taking to your follow up visit. Our treatment cannot replace ongoing medical care by a primary care provider outside of the emergency department. Thank you for allowing the [facility] team to be part of your care today. If you had an X-Ray or CT scan: A Radiologist will review the ED reading if any change in treatment is needed we will contact you. If you had a blood, urine, or wound culture: It will take several days for the results, if any change in treatment is needed we will contact you. If you had an STI test: It will take 48 hours for the results. Please call after 1 week if you have not heard back. Instructions: Bleeding Precautions Forms: Gen Discharge Inst Haitian, [employer] (Haitian) Print Language: AZERI - Clinical Impression Clinical Impression: Bleeding at insertion site - Scribe Statement The provider has reviewed the documentation as recorded by the Mal Monk Provider Attestation: All medical record entries made by the Mal were at my direction and personally dictated by me. I have reviewed the chart and agree that the record accurately reflects my personal performance of the history, physical exam, medical decision making, and the department course for this patient. I have also personally directed, reviewed, and agree with the discharge instructions and disposition.
[2018-03-12 18:30] LABS: HEMOGLOBIN 11.8 g/dL (12.0-18.0)
[2018-03-12 19:33] VITALS: BP 145/70; PULSE 85; RESP 14
[2018-03-12 20:02] VITALS: O2SAT 98
== END 2018-03-12 19:34 | disposition home or self-care (01) ==
LOC: C.ER 17:04
DX: R58 Hemorrhage, not elsewhere classified (principal)